=== PATIENT | male | born 1950 | race Caucasian/White ===

== ENCOUNTER 2019-12-07 00:18 | Outpatient (CLI) | payer MEDICARE, SELFPAY ==
[2019-12-07 18:54] LABS: SARS-CoV-2 RNA PCR Negative
== END 2019-12-07 00:19 | disposition home or self-care (01) ==
LOC: ANHCOVIDDT 00:18
PROVIDERS: PCP Internal Medicine; Visit Provider Orthopaedic Surgery
DX: Z01.818 Encounter for other preprocedural examination (principal); Z11.59 Encounter for screening for other viral diseases
CPT/HCPCS: 87635; C9803; U0003

== ENCOUNTER 2019-12-09 01:55 | Day surgery (SDC) | payer MEDICARE, SELFPAY ==
[2019-12-03 09:58] VITALS: BMI 25.7
--- NOTE | 2019-12-08 14:13 | WPDANESEPPF ---
Anes - Initial Pre Proc Eval Procedure: Operation Date: 12/09/19 07:30 Proposed Procedures p Left Knee Arthroscopy - Triston Mireles MD Date/Time: 12/08/19 14:13 Surgeon: Triston Mireles MD Pre Op Diagnosis: left medial meniscus tear Patient Data Age: 69 Gender: M Height: 1.88 m Weight: 90.75 kg Allergies Allergy/AdvReac Type Severity Reaction Status Date / Time No Known Allergies Allergy Unknown Verified 12/03/19 09:38 Home Medications Medication Instructions Recorded Confirmed Type amlodipine 5 mg tablet 5 mg PO QNOON 11/26/19 12/03/19 History cholecalciferol (vitamin D3) 50 mcg PO DAILY 12/03/19 12/03/19 History multivitamin,[id number] 1 tablet PO DAILY 12/03/19 12/03/19 History [Complete Multivitamin] Patient hx anesthesia problems: none Family hx anesthesia problems: none PMFSH Past Medical History Medical History (Updated 11/26/19 @ 15:57 by JOEL Shetty) HTN (hypertension) Medial meniscus tear Right knee pain Vision abnormalities Social History Social History (Updated 11/26/19 @ 14:04 by Alyssia Rendon) Smoking status: Never smoker Alcohol intake: current Substance use: unknown Anes - Eval Final PreProcedure Day of Procedure 12/08/19 14:13 Patient weight: normal Heart: regular rate and rhythm Lungs: clear to auscultation and normal air movement Airway: Mallampati scale class II Neurological: alert and oriented Last oral intake: >/= 8 hours ASA classification: II Emergent: no Anesthetic plan: proceed Anesthesia type and monitoring: general LMA Informed Consent: The patient's anesthetic plan and its attendant risks and benefits were discussed with the patient/family/POA. Questions were solicited and answers provided to the satisfaction of the patient/family/POA.
[2019-12-09] VITALS (7 sets, daily range): BP systolic 121–150; BP diastolic 85–95; PULSE 60–68; RESP 12–14; TEMP 36.2; O2SAT 98–100
--- NOTE | 2019-12-09 07:36 | WPDHPUPDATE1 ---
History and Physical Update Update Date/Time: 12/09/19 07:36 History and Physical has been reviewed, including an updated exam of the patient. There are NO changes in the patient's condition. Risks, benefits, and alternatives have been discussed and questions answered. Patient agrees to proceed with procedure.
[2019-12-09] MEDS: ceFAZolin 2 GM/D5W 50 ML 2 GM/50 ML BAG IVPB (07:38)
[2019-12-09] MEDS: LACTATED RINGERS 1,000 ML 30 ML IV CONT ×2 (08:45)
--- NOTE | 2019-12-09 08:47 | PM.OP ---
Procedure Note - Brief Procedure Note - Brief Date of procedure: 12/09/19 Pre-op diagnosis: left medial meniscus tear Post-op diagnosis: same Procedure performed: LEFT KNEE SCOPE Anesthesia: GLMA Surgeon: Triston Mireles MD Estimated blood loss (mL): 10 Complications: No immediate complications Condition: stable Disposition: PACU
--- NOTE | 2019-12-09 09:18 | OP_ITS ---
DATE OF PROCEDURE: 12/09/2019 PREOPERATIVE DIAGNOSIS: Left medial meniscus tear. 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 PROCEDURE: Left knee arthroscopy with partial medial meniscectomy, partial lateral meniscectomy, and major synovectomy. ANESTHESIA: General. COMPLICATIONS: None. INDICATIONS: This is a 69-year-old male with a history of left knee pain and effusion due to complex medial meniscus tear. He was indicated for left knee arthroscopy. DESCRIPTION OF PROCEDURE: The patient was taken to the operative room in stable condition, was placed in supine position. General anesthesia was induced and then, the left lower extremity was prepped and draped sterilely from the toes to the thigh. Superomedial portal was used for an outflow cannula. Inferolateral portal was used for the camera. The camera was introduced. 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 There was significant amount of synovitis in the superomedial compartment and in Hoffa synovium. The medial compartment was entered. There was a complex tear of the medial meniscus. A medial portal was established and the meniscus tear was resected down to a smooth base and smoothed out with a shaver. Limited chondroplasty was performed on the medial femoral condyle. The ACL was identified. It was intact. The lateral compartment was entered. There was a small complex tear of the lateral meniscus that was resected with a shaver and limited chondroplasty was performed. Next, patellofemoral joint underwent chondroplasty. Thus, synovectomy was performed in the medial compartment and in Hoffa synovium. The knee joint was irrigated thoroughly. The wounds were approximated with 4-0 nylon suture. Sterile dressing was applied. The patient was extubated. Anna I MT: Cydney
--- NOTE | 2019-12-09 09:32 | SUR.PHASEI ---
DOCUMENTATION @ 0714 IN WORKLIST SHOULD BE DOCUMENTED 0930 12/09/19.
== END 2019-12-09 10:34 | disposition home or self-care (01) ==
PROVIDERS: PCP Internal Medicine; Visit Provider Orthopaedic Surgery
PROC: (CPT 29870; principal; 2019-12-09 07:30)
DX: M23.332 Other meniscus derangements, other medial meniscus, left knee (principal); M23.362 Other meniscus derangements, other lateral meniscus, left knee; M94.262 Chondromalacia, left knee; M65.862 Other synovitis and tenosynovitis, left lower leg; I10 Essential (primary) hypertension
CPT/HCPCS: 29880; 87635; A9270; C9803; J0690; J2250; J2405; J2704; J3010; J7120; U0003

== ENCOUNTER 2021-03-31 18:07 | Inpatient (IN) | payer MEDICARE, SELFPAY ==
--- NOTE | ~2021-03-31 | XR_ITS ---
EXAMINATION: XR abdomen/kub 1V INDICATION: Assess stent position TECHNIQUE: Supine views of the abdomen were obtained on 2 radiographs. COMPARISON: None FINDINGS: There are bilateral internal ureteral stents in expected position. Stones are present in th e lower poles of the kidneys. Epigastric calcifications may be within the pancreas. The bowel gas pat tern is normal. A moderate volume of colonic stool is present. 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 IMPRESSION: 1. Bilateral internal ureteral stents in expected position. Reviewed, dictated and finalized at location A.
--- NOTE | ~2021-03-31 | XR_ITS ---
XR retrograde pyelo w/stent BI DATE: 04/01/2021 12:24 INDICATION: Bilateral stent placement TECHNIQUE: 48.4 seconds fluoroscopy time 806.85 radcm2 Multiple bilateral spot C-arm images during bilateral retrograde pyelography and stent placement COMPARISON: None FINDINGS: There is evidence of bilateral ureteropelvic disproportion with bilateral pelviectasis. Final images revealed bilateral internal urinary stent placements with the stents in expected positio n. IMPRESSION: Bilateral ureteropelvic disproportion and pelviectasis Bilateral internal urinary stent placement Reviewed, dictated and finalized at Location [facility]. Reviewed, dictated and finalized at location A.
[2021-03-31 18:11] VITALS: BP 138/94; PULSE 88; RESP 16; TEMP 36.3; O2SAT 97
[2021-03-31 18:47] LABS: Basophils Percent Auto 0.2 % (0.2-1.2); Eosinophils Percent Auto 0.3 % (0-4.4); Hematocrit 40.2 % (42.0-52.0); Hemoglobin 13.6 g/dL (14.0-18.0); Immature Granulocyte Absolute 0.02 K/mm3 (0.00-0.031); Immature Granulocyte Percent A 0.2 % (0-0.5); Lymphocytes Absolute Auto 0.85 K/mm3 (0.9-3.2); Lymphocytes Percent Auto 7.8 % (18.3-44.2); Mean Corpuscular HGB Conc 33.8 g/dl (32-36); Mean Corpuscular Volume 88.7 fl (80-100); Mean Platelet Volume 8.4 fl (7.4-10.4); Monocytes Percent Auto 9.3 % (2.6-8.5); Neutrophils Percent Auto 82.2 % (45.5-73.1); Platelet Count Result 210 k/mm3 (150-375); Red Blood Count 4.53 M/mm3 (4.6-6.20); Red Cell Distribution Width 12.4 % (11.5-14.5); White Blood Count 10.9 K/mm3 (4.5-10.0)
[2021-03-31 18:54] LABS: Anion Gap 11 mmol/L (8-16); Blood Urea Nitrogen 21 mg/dL (9-20); Calcium 9.7 mg/dL (8.4-10.2); Carbon Dioxide 27 mmol/L (22-30); Chloride 102 mmol/L (98-107); Estimated CRCL calculation 59 ml/min; Estimated Glomerular Filt Rate 60; Glucose 127 mg/dL (65-110); Sodium 140 mmol/L (137-145)
[2021-03-31 18:59] LABS: Add Urine Microscopic? YES; Appearance Urine Cloudy (Clear); Bilirubin Urine Negative (Negative); Blood Urine 3+ (Negative); Color Urine Yellow (Yellow); Glucose Urine UA Negative (Negative); Ketones Urine Trace mg/dL (Negative); Leukocyte Esterase Ur Negative LEU/UL (Negative); Nitrate Urine Negative (Negative); Protein Urine 1+ mg/dL (Negative); RBC Urine >75 /hpf (0-2); Urobilinogen Urine Negative mg/dL (<2.0); WBC Urine 51-75 /hpf
[2021-03-31 19:23] LABS: Specific Grav Ur 1.035 (1.001-1.035)
--- NOTE | 2021-03-31 21:04 | ED.GENADULT ---
HPI - General Adult General Chief complaint: Abdominal Pain Stated complaint: flank pain Time Seen by Provider: 03/31/21 20:29 History of Present Illness HPI narrative: Patient 70-year-old gentleman who presents the emergency department with chief complaint of kidney stones. Patient reports that he had a prior history of kidney stones and started having severe flank pain patient was seen at [place] and had an outpatient CT scan done by urology. The patient was found to have bilateral obstructing stones patient was also found to have a UTI and was started on Bactrim the patient is taken 1 dose of the Bactrim and this evening started having severe pain worse in the left side. The patient states that he talk to urology and they recommended that if his pain got worse he should go to the emergency department at [place] for admission. Patient was planned to have bilateral stents placed on Saturday Related Data Home Medications Medication Instructions Recorded Confirmed amlodipine 5 mg tablet 5 mg PO QNOON 11/26/19 12/09/19 Complete Multivitamin 1 tablet PO DAILY 12/03/19 12/09/19 cholecalciferol (vitamin D3) 50 mcg PO DAILY 12/03/19 12/09/19 Allergies Allergy/AdvReac Type Severity Reaction Status Date / Time No Known Allergies Allergy Unknown Verified 12/18/19 09:42 Review of Systems Review of Systems: A 10 system review of systems was completed on the patient and is negative except for what is stated in the HPI. Nursing and ancillary documentation was reviewed. PENDING SALE TO [facility] Past Medical History Medical History (Updated 03/31/21 @ 21:07 by Maciej Diaz MD) HTN (hypertension) Medial meniscus tear Right knee pain Vision abnormalities Family History Family History Other Cerebrovascular accident Social History Social History Smoking status: Never smoker Alcohol intake: current Substance use: unknown Exam Narrative: GENERAL: Well-appearing, well-nourished, and in no acute distress. HEAD: Normocephalic, atraumatic. EYES: PERRLA and EOMI. ENT: Nares clear, no rhinorrhea or epistaxis. Mucous membranes moist. NECK: Supple. CHEST: Clear to auscultation. No respiratory distress. HEART: Regular rate and rhythm. No murmur heard. Normal peripheral pulses. ABDOMEN: Soft, nontender, nondistended, normal active bowel sounds. EXTREMITIES: Normal range of motion. No edema. SKIN: Warm, dry, no rash. NEURO: No focal deficits. Alert and oriented x3. PSYCH: Normal mood and affect. Course Course Emergency Course: Given the patient's history of the case was discussed with Dr. Ortiz who is on-call for Dr. Reyes. Given his history and findings the patient will be admitted to the hospitalist service with a urology consult and plan will be for bilateral stents to be placed during the day tomorrow Vital Signs Vital signs: Vital Signs Temperature 36.3 C L 03/31/21 18:11 Pulse Rate 88 03/31/21 18:11 Respiratory Rate 16 03/31/21 18:11 Blood Pressure 138/94 H 03/31/21 18:11 Pulse Oximetry 97 03/31/21 18:11 Temperature 36.3 C L 03/31/21 18:11 Pulse Rate 88 03/31/21 18:11 Respiratory Rate 16 03/31/21 18:11 Blood Pressure 138/94 H 03/31/21 18:11 Pulse Oximetry 97 03/31/21 18:11 Medical Decision Making Vital Signs Vital Signs: Vital Signs Temperature 36.3 C L 03/31/21 18:11 Pulse Rate 88 03/31/21 18:11 Respiratory Rate 16 03/31/21 18:11 Blood Pressure 138/94 H 03/31/21 18:11 Pulse Oximetry 97 03/31/21 18:11 Temperature 36.3 C L 03/31/21 18:11 Pulse Rate 88 03/31/21 18:11 Respiratory Rate 16 03/31/21 18:11 Blood Pressure 138/94 H 03/31/21 18:11 Pulse Oximetry 97 03/31/21 18:11 Lab Data Result diagrams: 03/31/21 18:16 03/31/21 18:16 Labs: Lab Results 03/31/21 03/31/21 03/31/21 Rang
[2021-03-31 21:10] VITALS: BP 135/91; PULSE 75; RESP 20; O2SAT 98
[2021-03-31] MEDS: ONDANSETRON INJ 4 MG/2 ML VIAL IV PUSH (21:22)
[2021-03-31] MEDS: HYDROmorphone HCL INJ (*CRX) 1 MG/ML SYR IV PUSH (21:22)
[2021-03-31] MEDS: SODIUM CHLORIDE 0.9% IV 1,000 ML 999 ML IV CONT (21:23)
[2021-03-31 22:27] VITALS: BP 127/88; PULSE 76; RESP 17; O2SAT 97
[2021-03-31 22:51] VITALS: BMI 27.8
--- NOTE | 2021-03-31 22:58 | ADMGEN ---
This patient, Patrick Crowley, was admitted to 3 [facility] Surg Room 302-01. Patient/family oriented to hospital policies and general routines including ID bracelet, bed and alarms, visiting hours, pain management, procedures, bathroom and other care routines, personal items, smoking policy, room service/diet, and visiting hours. Information on how to activate the Rapid Response Team has been discussed. Patient/Family are encouraged to report perceived risks to care and to ask questions if they do not understand what they are told or what they should do.
[2021-04-01] VITALS (14 sets, daily range): BP systolic 112–175; BP diastolic 71–95; PULSE 68–110; RESP 10–20; TEMP 36.1–36.8; O2SAT 93–100
[2021-04-01] MEDS: SODIUM CHLORIDE 0.9% IV 1,000 ML 125 ML IV CONT ×2 (05:55→17:39)
[2021-04-01] MEDS: MORPHINE SULFATE (*CRX) 4 MG/ML INJ IV PUSH ×5 (05:56→21:10)
--- NOTE | 2021-04-01 06:48 | WPDANESEPP ---
Anes - Eval Pre Procedure Procedure: Operation Date: 04/01/21 12:00 Proposed Procedures p Cystoscopy with Bilateral Stent Placecment, Possible Ureteroscopy(Bilateral) - Trudy Ortiz MD Date/Time: 04/01/21 06:48 Pre Op Diagnosis: Bilateral Obstructing Ureterolithiasis Patient Data Age: 70 Gender: M Height: 1.88 m Weight: 98.2 kg Last Vital Signs Temp 36.3 C L 04/01/21 06:00 Pulse 68 04/01/21 06:00 Resp 18 04/01/21 06:00 BP 112/71 04/01/21 06:00 Pulse Ox 98 04/01/21 06:00 Allergies Allergy/AdvReac Type Severity Reaction Status Date / Time No Known Allergies Allergy Unknown Verified 03/31/21 21:11 Home Medications Medication Instructions Recorded Confirmed Type amlodipine 5 mg tablet 5 mg PO QNOON 11/26/19 03/31/21 History Laboratory Tests 03/31/21 03/31/21 03/31/21 18:16 18:16 18:25 WBC 10.9 K/mm3 H K/mm3 (4.5-10.0) RBC 4.53 M/mm3 L M/mm3 (4.6-6.20) Hgb 13.6 g/dL L g/dL (14.0-18.0) Hct 40.2 % L % (42.0-52.0) MCV 88.7 fl fl (80-100) MCH 30.0 pg pg (26-34) MCHC 33.8 g/dl g/dl (32-36) RDW 12.4 % % (11.5-14.5) Plt Count 210 k/mm3 k/mm3 (150-375) MPV 8.4 fl fl (7.4-10.4) Immature Gran % (Auto) 0.2 % % (0-0.5) Neut % (Auto) 82.2 % H % (45.5-73.1) Lymph % (Auto) 7.8 % L % (18.3-44.2) Cotton % (Auto) 9.3 % H % (2.6-8.5) Eos % (Auto) 0.3 % % (0-4.4) Baso % (Auto) 0.2 % % (0.2-1.2) Lymph # (Auto) 0.85 K/mm3 L K/mm3 (0.9-3.2) Cotton # (Auto) 1.0 K/mm3 H K/mm3 (0.1-0.6) Eos # (Auto) 0.0 K/mm3 K/mm3 (0-0.3) Baso # (Auto) 0.0 K/mm3 K/mm3 (0.0-0.1) Abs Immat Gran (auto) 0.02 K/mm3 K/mm3 (0.00-0.031) Absolute Neuts (auto) 9.0 K/mm3 H K/mm3 (1.3-6.7) Absolute Nucleated RBC 0.0 K/mm3 K/mm3 (0.0-0.012) Nucleated RBC % 0.0 % % (0.0-0.2) Sodium 140 mmol/L mmol/L (137-145) Potassium 4.0 mmol/L mmol/L (3.4-5.0) Chloride 102 mmol/L mmol/L (98-107) Carbon Dioxide 27 mmol/L mmol/L (22-30) Anion Gap 11 mmol/L mmol/L (8-16) BUN 21 mg/dL H mg/dL (9-20) Creatinine 1.20 mg/dL mg/dL (0.7-1.3) Estim Creat Clear Calc 59 ml/min ml/min Estimated GFR 60 (59 - ) Glucose 127 mg/dL H mg/dL (65-110) Calcium 9.7 mg/dL mg/dL (8.4-10.2) Urine Color Yellow (Yellow) Urine Appearance Cloudy H (Clear) Urine pH 6.0 (5.0-9.0) Ur Specific [place] 1.035 (1.001-1.035) Urine Protein 1+ mg/dL H mg/dL (Negative) Urine Glucose (UA) Negative mg/dL mg/dL (Negative) Urine Ketones Trace mg/dL mg/dL (Negative) Ur Blood (Man) 3+ H (Negative) Urine Nitrate Negative (Negative) Urine Bilirubin Negative (Negative) Urine Urobilinogen Negative mg/dL mg/dL (<2.0) Leukocyte Esterase Rfl Negative KEITH/UL KEITH/UL (Negative) Urine RBC >75 /hpf H /hpf (0-2) Urine WBC 51-75 /hpf H /hpf Patient hx anesthesia problems: none Family hx anesthesia problems: none Results Review: All pre-operative results and documents have been reviewed as part of the pre-operative evaluation. [facility] Past Medical History Medical History HTN (hypertension) Medial meniscus tear Right knee pain Vision abnormalities Family History Family History Other Cerebrovascular accident Social History Social History Smoking status: Never smoker Alcohol intake: never Substance use: never Spiritual care concerns: No
--- NOTE | 2021-04-01 09:18 | PM.IMHP ---
H&P: HPI History of Present Illness Date/Time: 04/01/21 09:18 Patient is 70-year-old gentleman who presents the emergency department with chief complaint of kidney stones. Patient reports that he had a prior history of kidney stones and started having severe flank pain patient was seen at [place] and had a scheduled outpatient CT scan done by urology on Saturday. The patient was found to have bilateral obstructing stones patient was also found to have a UTI and was started on Bactrim the patient is taken 1 dose of the Bactrim and this evening started having severe pain worse in the left side. The patient spoke to his urologist's and they recommended to go to the emergency department at [place] for admission. He is well-known patient of Dr. Reyes. Emergent CTUrogram at [place] showed bilateral 5 mm UPJ stones with mild right hydro and moderate left hydro. There was decrease in size of the lesion in the left kidney. UA in office was positive and was started on bactrim. Cr was 1.0 and plan was for bilateral ureteral stents on Saturday with DR Combs. He is scheduled for cystoscopy, bilateral stent placement, and possible left ureteroscopy to evaluate the filling defect in the left renal pelvis. Patient has been admitted under observation status. . Chief Complaint: Abdominal pain Review of Systems Constitutional: Constitutional: Reports no additional constitutional complaints Eyes: Eyes: Reports no additional eye complaints ENT: Reports system reviewed and no additional complaints, except as documented Cardiovascular: Cardiovascular: Reports no additional cardiovascular complaints Respiratory: Respiratory: Reports no additional respiratory complaints Gastrointestinal: Gastrointestinal: Reports no additional gastrointestinal complaints Genitourinary: Genitourinary: Reports flank pain Comments: Flank pain Musculoskeletal: Musculoskeletal: Reports no additional musculoskeletal complaints Integumentary/Breasts: Skin/Breast: Reports system reviewed and no additional complaints, except as docu Neurologic: Reports system reviewed and no additional complaints, except as documented Psychiatric: Psychiatric: Reports no additional psychiatric complaints [facility] Past Medical History Medical History (Updated 04/01/21 @ 11:39 by Trudy Ortiz MD) HTN (hypertension) Medial meniscus tear Right knee pain Vision abnormalities Family History Family History Other Cerebrovascular accident Social History Social History Smoking status: Never smoker Alcohol intake: never Substance use: never Spiritual care concerns: No Meds Home Medications and Allergies Home Medications Medication Instructions Recorded Confirmed Type amlodipine 5 mg tablet 5 mg PO QNOON 11/26/19 03/31/21 History Allergies Allergy/AdvReac Type Severity Reaction Status Date / Time No Known Allergies Allergy Unknown Verified 03/31/21 21:11 Vital Signs Vital Signs - 24 hr 03/31/21 18:11 03/31/21 21:10 03/31/21 22:27 Temperature 97.3 F L Pulse Rate 88 75 76 Respiratory Rate 16 20 17 Blood Pressure 138/94 H 135/91 H 127/88 Pulse Oximetry 97 98 97 04/01/21 06:00 Temperature 97.3 F L Pulse Rate 68 Respiratory Rate 18 Blood Pressure 112/71 Pulse Oximetry 98 Exam Const: General: no acute distress HENMT: Mouth: Yes moist mucous membranes Eyes: General: appearance normal, both eyes and all related structures Sclera: sclerae normal Pupils: Equal, round and reactive pupils present EOM: EOMs intact bilaterally Neck: Neck: supple and no JVD Resp: Effort & Inspection: normal respiratory effort Auscultation: clear to auscultation bilaterally Cardio: Rate: regular rate Rhythm: regular rhythm GI: Inspection: non-distended GI Palp: No Tenderness to palpation present (GI) : Other: De
[2021-04-01] MEDS: ONDANSETRON INJ 4 MG/2 ML VIAL IV PUSH ×3 (09:52→21:21)
--- NOTE | 2021-04-01 10:26 | WPDANESEFPP ---
Anes - Eval Final PreProcedure Day of Procedure 04/01/21 10:26 Patient weight: overweight Heart: regular rate and rhythm Lungs: clear to auscultation Airway: Mallampati scale class II Neurological: alert and oriented Last oral intake: >/= 8 hours ASA classification: II Emergent: no Anesthetic plan: proceed Anesthesia type and monitoring: general LMA and standard monitoring Results Review: All pre-operative results and documents have been reviewed as part of the pre-operative evaluation. Informed Consent: The patient's anesthetic plan and its attendant risks and benefits were discussed with the patient/family/POA. Questions were solicited and answers provided to the satisfaction of the patient/family/POA.
[2021-04-01] MEDS: FAMOTIDINE 20 MG/2 ML VIAL IV PUSH (10:37)
--- NOTE | 2021-04-01 11:33 | WPDURCON ---
Assessment and Plan Assessment and plan (1) Ureterolithiasis: Code(s): N20.1 - Calculus of ureter Status: Acute (2) Gross hematuria: Code(s): R31.0 - Gross hematuria Status: Acute (3) Hydronephrosis concurrent with and due to calculi of kidney and ureter: Code(s): N13.2 - Hydronephrosis with renal and ureteral calculous obstruction Status: Acute Assessment and Plan: 70 yo WM presenting with bilateral 5 mm UPJ stones with hydronephrosis. He had +UA in office started on bactrim and now on rocephin. He elects to proceed to the OR for cystoscopy, bilateral stent placement, and possible left ureteroscopy to evaluate the filling defect in the left renal pelvis. He understands that if the urine looks infected or if I am unable to advance the ureteroscope, he will need a delayed definitive ureteroscopy with Dr. Reyes at the time of treatment for his right UPJ stone. He understands the risks of the procedure today including but not limited to bleeding, infection, damage to the urinary tract, stent irritation, and risks of anesthesia. He elects to proceed. Continue IV abx while awaiting culture results. Recommend rechecking Cr and wbc ct in AM. Urology Consult Note HPI Date Seen: 04/01/21 Requesting Physician: Roseline Phillips DO Primary Care Provider: Jacques Soni, Consult Narrative Narrative: Patrick Crowley is a 70 year old male presenting with hematuria and left flank pain. Is known patient of Dr. Reyes. Had CT a month ago showing blood clot vs mass in left kidney. He was scheduled for outpatient CTUrogram but had sudden onset of recurrent hematuria and flank pain yesterday. He saw our COMMUNICATIONS CONSULTANT in the office. Emergent CTUrogram at [place] showed bilateral 5 mm UPJ stones with mild right hydro and moderate left hydro. There was decrease in size of the lesion in the left kidney. UA in office was positive and was started on bactrim. Cr was 1.0 and plan was for bilateral ureteral stents on Saturday with DR Combs. However, patient presented to ER last night with worsening left flank pain and has had some nausea and emesis today. No fevers, chills. Review of Systems Review of Systems: All systems reviewed & are unremarkable except as noted in HPI and below (all systems are negative other than as per HPI) Constitutional: Constitutional: Reports as per HPI, Denies chills and Denies fever(s) [facility] Past Medical History Medical History (Updated 04/01/21 @ 11:39 by Trudy Ortiz MD) HTN (hypertension) Medial meniscus tear Right knee pain Vision abnormalities Family History Family History Other Cerebrovascular accident Social History Social History Smoking status: Never smoker Alcohol intake: never Substance use: never Spiritual care concerns: No Meds Home Medications and Allergies Home Medications Medication Instructions Recorded Confirmed Type amlodipine 5 mg tablet 5 mg PO QNOON 11/26/19 03/31/21 History Allergies Allergy/AdvReac Type Severity Reaction Status Date / Time No Known Allergies Allergy Unknown Verified 03/31/21 21:11 Vital Signs Vital Signs - 24 hr 03/31/21 18:11 03/31/21 21:10 03/31/21 22:27 Temperature 36.3 C L Pulse Rate 88 75 76 Respiratory Rate 16 20 17 Blood Pressure 138/94 H 135/91 H 127/88 Pulse Oximetry 97 98 97 04/01/21 06:00 04/01/21 08:00 Temperature 36.3 C L Pulse Rate 68 68 Respiratory Rate 18 18 Blood Pressure 112/71 Pulse Oximetry 98 98 Exam Narrative: 70 yo WM in minimal distress due to nausea Const: General: cooperative, healthy appearing and well developed HENMT: Head: normal to inspection Ears: hearing grossly normal bilaterally General nose exam: Normal external nose present Eyes: General: appearance normal, both eyes and all related str
--- NOTE | 2021-04-01 11:44 | WPDHPUPDATE1 ---
History and Physical Update Update Date/Time: 04/01/21 11:44 History and Physical has been reviewed, including an updated exam of the patient. There are NO changes in the patient's condition. Risks, benefits, and alternatives have been discussed and questions answered. Patient agrees to proceed with procedure.
[2021-04-01] MEDS: LIDOCAINE HCL 2% GEL UROJET 10 ML PKG MUCOUS MEM (11:59)
--- NOTE | 2021-04-01 12:20 | P.OP_ITS ---
Procedure Note - Detailed Date of Procedure 04/01/21 Pre-op Diagnosis Bilateral Obstructing Ureterolithiasis Post-op Diagnosis same Procedure Performed cystoscopy, bilateral retrograde pyelogram and bilateral stent placement Surgeon Trudy Ortiz MD [employer] none Anesthesia general and local Indications 70 yo WM with bilateral 5 mm UPJ stones with hydronephrosis and +UA. After discussion regarding treatment options, he elects for cystoscopy and bilateral stent placement with possible ureteroscopy. He understood the risks including but not limited to bleeding, infection, damage to urinary tract, stent irritation, and risks of anesthesia. He elects to proceed. Findings bilateal moderate hydro. Purulent bloody urine in left collecting system. Small 3-4 mm bladder stone Description of Procedure Patient was correctly identified and informed consent was obtained. He was brought to the OR and formal timeout was performed. General anesthesia was induced. He already received IV rocephin and was not due for redosing. He was placed in dorsal lithotomy position, prepped and draped in sterile fashion. Rigid cystoscope was inserted throught the urethra into the bladder. He was noted to have trilobar hypertrophy of the prostate. He had several clots in the bladder and moderate trabeculations. I noted a 3-4 mm bladder stone which I removed and sent for pathology. The right UO was intubated with a bentson wire and advanced under fluoroscopy into the right kidney. Using an 8fr coaxial dilator, a gentle retrograde pyelogram was performed. He was noted to have moderate right hydronephrosis. A 6fr variable length stent was placed under a combination of fluoroscopic guidance and direct vision with a curl in the renal pelvis and another curl in the bladder. I then intubated the left UO with the bentson wire and advanced it under fluoroscopy into the left kidney. I advanced the 8fr coaxial dilator into the left renal pelvis. There was return of bloody purulent urine. I took a urine specimen for culture. A gentle retrograde pyelogram was performed and he was noted to have moderate left hydonephrosis. Due to the purulent urine, I elected not to proceed with ureteroscopy. A A 6fr variable length stent was placed under a combination of fluoroscopic guidance and direct vision with a curl in the renal pelvis and another curl in the bladder. The bladder was drained of its contents and 2% lidocaine jelly was inserted. He was awaken and taken to the recovery room in a stable condition. Implants bilateral 6 fr variable length stents Estimated Blood Loss 5 Drains No Packing No Pathology yes (bladder stone and left renal pelvis urine for culture) Complications No immediate complications Condition stable Disposition PACU
--- NOTE | 2021-04-01 13:20 | PC.NURSE ---
Patient back from PACU via stretcher at 1305.
[2021-04-01] MEDS: amLODIPine BESYLATE 5 MG TABLET PO (17:37)
[2021-04-01] MEDS: oxyCODONE/ACETAMINOPHEN (*CRX) 5-325 MG TABLET 1 TABLET PO ×2 (17:37→23:56)
[2021-04-02] MEDS: MORPHINE SULFATE (*CRX) 4 MG/ML INJ IV PUSH (03:20)
[2021-04-02] MEDS: SODIUM CHLORIDE 0.9% IV 1,000 ML 125 ML IV CONT ×4 (03:26→22:27)
[2021-04-02 05:57] VITALS: BP 146/91; PULSE 95; RESP 20; TEMP 36.4; O2SAT 98
[2021-04-02 06:32] LABS: Basophils Percent Auto 0.1 % (0.2-1.2); Hemoglobin 12.3 g/dL (14.0-18.0); Immature Granulocyte Absolute 0.04 K/mm3 (0.00-0.031); Immature Granulocyte Percent A 0.3 % (0-0.5); Lymphocytes Absolute Auto 0.83 K/mm3 (0.9-3.2); Mean Corpuscular HGB Conc 33.2 g/dl (32-36); Mean Corpuscular Hemoglobin 30.3 pg (26-34); Mean Corpuscular Volume 91.1 fl (80-100); Mean Platelet Volume 8.1 fl (7.4-10.4); Monocytes Absolute Auto 1.2 K/mm3 (0.1-0.6); Monocytes Percent Auto 10.4 % (2.6-8.5); Neutrophils Absolute Auto 9.7 K/mm3 (1.3-6.7); Neutrophils Percent Auto 82.2 % (45.5-73.1); Platelet Count Result 181 k/mm3 (150-375); Red Blood Count 4.06 M/mm3 (4.6-6.20); Red Cell Distribution Width 12.6 % (11.5-14.5); White Blood Count 11.8 K/mm3 (4.5-10.0)
[2021-04-02 06:42] LABS: Anion Gap 8 mmol/L (8-16); Blood Urea Nitrogen 25 mg/dL (9-20); Calcium 9.6 mg/dL (8.4-10.2); Carbon Dioxide 28 mmol/L (22-30); Chloride 105 mmol/L (98-107); Estimated CRCL calculation 45 ml/min; Estimated Glomerular Filt Rate 43; Glucose 123 mg/dL (65-110); Potassium 4.2 mmol/L (3.4-5.0); Sodium 141 mmol/L (137-145)
--- NOTE | 2021-04-02 07:47 | PM.IMPN ---
Progress Note: A&P Assessment and Plan (1) Ureterolithiasis: Code(s): N20.1 - Calculus of ureter Status: Acute Assessment and Plan: Urology performed cystoscopy and bilateral stent placement with possible ureteroscopy. Findings were bilateral moderate hydro. Purulent bloody urine in left collecting system. Small 3-4 mm bladder stone sent for pathology. Purulent urine sent for culture. (2) HTN (hypertension): Code(s): I10 - Essential (primary) hypertension Status: Acute Assessment and Plan: Uncontrolled hypertension overnight likely related to pain. Improvement of blood pressure control today. Current blood pressure 133/71. Continue amlodipine 5 mg p.o. daily. (3) Right knee pain: Code(s): M25.561 - Pain in right knee Status: Acute Assessment and Plan: Tylenol PRN (4) Gross hematuria: Code(s): R31.0 - Gross hematuria Status: Acute Assessment and Plan: likely secondary to calculi of kidney and ureter. (5) Hydronephrosis concurrent with and due to calculi of kidney and ureter: Code(s): N13.2 - Hydronephrosis with renal and ureteral calculous obstruction Status: Acute Assessment and Plan: Patient is postop day 1 Stent placement. Pain which is resolved. Pain as improved this morning. He had an episode of incontinence. Urine cultures are negative, but patient was already on Bactrim. Currently he is afebrile with normal WBC. Continue Rocephin and monitor daily WBC. (6) Acute kidney injury: Code(s): N17.9 - Acute kidney failure, unspecified Status: Acute Assessment and Plan: mild acute nonoliguric kidney injury, likely secondary to contrast exposure. There may be an element of obstructive uropathy. Patient full for the catheter was inserted with 1.4 L of urine drained. Monitor repeat creatinine in a.m.. Subjective Date/time seen: 04/02/21 07:47 S: Patient was examined at the bedside. He was in pain overnight, but currently on the endorses mild pain. He underwentcystoscopy, bilateral retrograde pyelogram and bilateral stent placement on 04/01. Bladder scan showed Postvoid residual>1 L. Nicolas was placed with 1400 cc blood-tinged urine. Patient states he immediately started to feel better. Review of Systems Review of Systems: All systems reviewed & are unremarkable except as noted in HPI and below Constitutional: Constitutional: Reports no additional constitutional complaints Eyes: Eyes: Reports no additional eye complaints ENT: Reports system reviewed and no additional complaints, except as documented Cardiovascular: Cardiovascular: Reports no additional cardiovascular complaints Respiratory: Respiratory: Reports no additional respiratory complaints Gastrointestinal: Gastrointestinal: Reports no additional gastrointestinal complaints Genitourinary: Genitourinary: Reports flank pain Musculoskeletal: Musculoskeletal: Reports no additional musculoskeletal complaints Integumentary/Breasts: Skin/Breast: Reports system reviewed and no additional complaints, except as docu Neurologic: Reports system reviewed and no additional complaints, except as documented Psychiatric: Psychiatric: Reports no additional psychiatric complaints Exam Const: General: no acute distress HENMT: Mouth: Yes moist mucous membranes Eyes: General: appearance normal, both eyes and all related structures Sclera: sclerae normal Pupils: Equal, round and reactive pupils present EOM: EOMs intact bilaterally Neck: Neck: supple and no JVD Resp: Effort & Inspection: normal respiratory effort Auscultation: clear to auscultation bilaterally Cardio: Rate: regular rate Rhythm: regular rhythm GI: Inspection: non-distended : Other: Deferred. Skin: General skin exam: normal color and no rashes or lesions noted Neuro: Cranial nerves: Yes Equal, round and reactive pupils present Cognition (Neuro): elizabeth
--- NOTE | 2021-04-02 07:53 | WPDANESPN ---
Anes - Prog Note Post-Op Date/Time: 04/02/21 07:53 Cardiovascular status: normal Respiratory status: normal Airway patency: baseline Mental status: baseline Post-Op hydration status: normal Vital Signs: Last Vital Signs Temp 36.4 C 04/02/21 05:57 Pulse 95 04/02/21 05:57 Resp 20 04/02/21 05:57 BP 146/91 H 04/02/21 05:57 Pulse Ox 98 04/02/21 05:57 Pain Score (VAS): 0 I/O: Intake & Output 04/01/21 04/01/21 04/02/21 15:59 23:59 07:59 Intake Total 1536 026 1376 Balance 1041 884 2402 Laboratory Tests 04/02/21 06:20 04/02/21 06:20 04/02/21 04/02/21 06:20 06:20 WBC 11.8 H RBC 4.06 L Hgb 12.3 L Hct 37.0 L MCV 91.1 MCH 30.3 MCHC 33.2 RDW 12.6 Plt Count 181 MPV 8.1 Immature Gran % (Auto) 0.3 Neut % (Auto) 82.2 H Lymph % (Auto) 7.0 L [place] % (Auto) 10.4 H Eos % (Auto) 0.0 Baso % (Auto) 0.1 L Lymph # (Auto) 0.83 L [place] # (Auto) 1.2 H Eos # (Auto) 0.0 Baso # (Auto) 0.0 Abs Immat Gran (auto) 0.04 H Absolute Neuts (auto) 9.7 H Absolute Nucleated RBC 0.0 Nucleated RBC % 0.0 Sodium 141 Potassium 4.2 Chloride 105 Carbon Dioxide 28 Anion Gap 8 BUN 25 H Creatinine 1.60 H Estim Creat Clear Calc 45 Estimated GFR 43 L Glucose 123 H Calcium 9.6 Microbiology 03/31/21 18:25 Urine Clean Catch Urine Culture - Final Post-procedural complaints: none Patient Feedback: Patient satisfied with anesthetic care.
[2021-04-02 08:00] VITALS: BP 133/71; PULSE 88; RESP 16; TEMP 36.4; O2SAT 98
--- NOTE | 2021-04-02 09:12 | WPDUROPN2 ---
Progress Note: A&P Assessment and Plan (1) Gross hematuria: Code(s): R31.0 - Gross hematuria Status: Acute (2) Hydronephrosis concurrent with and due to calculi of kidney and ureter: Code(s): N13.2 - Hydronephrosis with renal and ureteral calculous obstruction Status: Acute (3) Ureterolithiasis: Code(s): N20.1 - Calculus of ureter Status: Acute Assessment and Plan: Is POD#1 s/p B stent placement - pain resolved - feels weak this AM. Urine cx from ER negative but was already on bactrim. Urine cx from L renal pelvis pending. Is on rocephin. Mild inc in wbc ct but no fever. Continue abx and follow daily wbc ct - Cr increased to 1.6. His Cr was 1.0 on Saturday but he received IV dye for CTUrogram at [facility]. Cr 1.2 on admission. Cr up to 1.6 today; likely related to contrast nephropathy. Continue to hydrate and monitor Cr closely. Checking bladder scan to ensure no retention and getting KUB to ensure no stent migration. Will need to stay until tomorrow and repeat Cr in AM. Subjective Subjective Date/Time Seen: 04/02/21 09:12 s/p B stent placement yesterday. States pain has resolved. Hematuria has improved. Feels tired and weak Review of Systems Review of Systems: All systems reviewed & are unremarkable except as noted in HPI and below Exam Const: General: cooperative and no acute distress Resp: Effort & Inspection: normal respiratory effort GI: Inspection: normal to inspection GI Palp: No abdominal tenderness : General: Yes no CVA tenderness Objective Data Vital Signs Vital Signs: Vital Signs - 24 hr 04/01/21 12:23 04/01/21 12:35 04/01/21 12:50 Temperature 36.4 C L Pulse Rate 97 96 89 Respiratory Rate 10 L 14 14 Blood Pressure 130/80 140/91 H 140/91 H Pulse Oximetry 100 97 95 04/01/21 12:58 04/01/21 13:05 04/01/21 13:20 Temperature 36.1 C L 36.1 C L Pulse Rate 87 84 86 Respiratory Rate 12 14 16 Blood Pressure 143/85 H 143/79 H 147/78 H Pulse Oximetry 96 97 96 04/01/21 13:50 04/01/21 14:50 04/01/21 18:28 Temperature 36.1 C L 36.2 C L Pulse Rate 84 92 Respiratory Rate 16 16 Blood Pressure 155/82 H 148/87 H 173/95 H Pulse Oximetry 95 98 04/01/21 18:30 04/01/21 20:27 04/01/21 21:44 Temperature 36.3 C L 36.8 C Pulse Rate 110 H 100 Respiratory Rate 18 20 Blood Pressure 175/93 H 145/89 H Pulse Oximetry 98 96 93 04/02/21 05:57 04/02/21 08:00 Temperature 36.4 C 36.4 C Pulse Rate 95 88 Respiratory Rate 20 16 Blood Pressure 146/91 H 133/71 Pulse Oximetry 98 98 Intake/Output Intake/Output: Intake & Output 03/30/21 03/31/21 04/01/21 04/02/21 23:59 23:59 23:59 23:59 Intake Total 1050 1740 1300 Balance 1050 1740 1300 Meds/Results Medications: Active Medications Generic Name Dose Route Start Last Admin Trade Name Freq PRN Reason Stop Dose Admin Acetaminophen 650 mg 04/02/21 09:03 Acetaminophen 325 Mg Tablet PO Q6H PRN Mild Pain (1-3) or Fever Amlodipine Besylate 5 mg 04/01/21 17:00 04/01/21 17:37 Amlodipine Besylate 5 Mg Tablet PO 5 mg NOON TOI Administration Sodium Chloride 1,000 mls @ 125 mls/hr 03/31/21 21:05 04/02/21 03:26 Normal Saline Iv IV CONT 125 mls/hr .Q8H TOI Administration Ceftriaxone Sodium/Dextrose 1 gm in 50 mls @ 100 mls/hr 04/01/21 22:00 04/01/21 21:21 Rocephin 1 Gm/D5w 50 Ml IVPB 100 mls/hr Q24H TOI Administration Morphine Sulfate 4 mg 03/31/21 21:02 04/02/21 03:20 Morphine Sulfate (*Crx) 4 Mg/Ml Inj IV PUSH 4 mg Q2H PRN Administration Pain Rated 7-10 Ondansetron HCl 4 mg 03/31/21 21:02 04/01/21 21:21 Ondansetron Inj 4 Mg/2 Ml Vial IV PUSH 4 mg Q4H PRN Administration Nausea Oxycodone/Acetaminophen 1 tablet 04/01/21 11:43 04/01/21 23:56 Oxycodone/Acetaminophen (*Crx) 5-325 Mg Tablet PO 1 tablet Q4H PRN Administration Pain Rated 4-6 Radiology Results: ITS Impressions Retrograde Brennon
[2021-04-02 14:00] VITALS: BP 133/79; PULSE 93; RESP 18; TEMP 37.1; O2SAT 97
[2021-04-02] MEDS: amLODIPine BESYLATE 5 MG TABLET PO (15:41)
[2021-04-02 20:10] VITALS: O2SAT 95
[2021-04-02 21:49] VITALS: BP 129/79; PULSE 95; RESP 18; TEMP 36.8; O2SAT 96
[2021-04-03 05:46] LABS: Basophils Percent Auto 0.4 % (0.2-1.2); Eosinophils Absolute Auto 0.2 K/mm3 (0-0.3); Eosinophils Percent Auto 1.9 % (0-4.4); Hematocrit 34.2 % (42.0-52.0); Hemoglobin 11.4 g/dL (14.0-18.0); Immature Granulocyte Absolute 0.04 K/mm3 (0.00-0.031); Immature Granulocyte Percent A 0.5 % (0-0.5); Lymphocytes Absolute Auto 1.75 K/mm3 (0.9-3.2); Lymphocytes Percent Auto 21.7 % (18.3-44.2); Mean Corpuscular HGB Conc 33.3 g/dl (32-36); Mean Platelet Volume 8.9 fl (7.4-10.4); Monocytes Percent Auto 12.3 % (2.6-8.5); Neutrophils Absolute Auto 5.1 K/mm3 (1.3-6.7); Neutrophils Percent Auto 63.2 % (45.5-73.1); Platelet Count Result 187 k/mm3 (150-375); Red Cell Distribution Width 12.6 % (11.5-14.5); White Blood Count 8.1 K/mm3 (4.5-10.0)
[2021-04-03 05:52] VITALS: BP 133/84; PULSE 89; RESP 18; TEMP 37.2; O2SAT 96
[2021-04-03 06:03] LABS: Anion Gap 5 mmol/L (8-16); Blood Urea Nitrogen 17 mg/dL (9-20); Calcium 9.1 mg/dL (8.4-10.2); Carbon Dioxide 29 mmol/L (22-30); Chloride 107 mmol/L (98-107); Estimated CRCL calculation 87 ml/min; Estimated Glomerular Filt Rate > 60; Glucose 111 mg/dL (65-110); Sodium 141 mmol/L (137-145)
[2021-04-03] MEDS: SODIUM CHLORIDE 0.9% IV 1,000 ML 125 ML IV CONT (06:55)
--- NOTE | 2021-04-03 08:45 | WPDUROPN2 ---
Progress Note: A&P Assessment and Plan (1) Hydronephrosis concurrent with and due to calculi of kidney and ureter: Code(s): N13.2 - Hydronephrosis with renal and ureteral calculous obstruction Status: Acute Assessment and Plan: Due to bilateral stones (2) Acute kidney injury: Code(s): N17.9 - Acute kidney failure, unspecified Status: Acute Assessment and Plan: Creatinine improved with stent placement (3) Ureterolithiasis: Code(s): N20.1 - Calculus of ureter Status: Acute Assessment and Plan: Will schedule outpatient stone procedure. The office will contact (4) Retention of urine, unspecified: Code(s): R33.9 - Retention of urine, unspecified Status: Acute Assessment and Plan: Home with Nicolas catheter. Begin Flomax 0.4 mg daily Subjective Subjective Date/Time Seen: 04/03/21 08:45 Minimal to no discomfort from the stents. Creatinine went up yesterday. Was noted to have urinary retention with over a L in his bladder. Nicolas catheter placed. Creatinine is now normalized. He understands he will go home with the Nicolas catheter. Will attempt a voiding trial in about 1 week. Will also schedule definitive stone procedure as an outpatient. He is stable for discharge home today Exam Const: General: cooperative and healthy appearing; No acute distress or in distress HENMT: Head: normal to inspection Eyes: General: appearance normal, both eyes and all related structures Neck: Neck: normal visual inspection Chest: Chest palpation & inspection: normal inspection of the chest Resp: Effort & Inspection: normal respiratory effort and able to speak in complete sentences Urinary Catheter: Urinary Catheter: patent and draining and urine clear Skin: General skin exam: normal color and no rashes or lesions noted Objective Data Vital Signs Vital Signs: Vital Signs - 24 hr 04/02/21 14:00 04/02/21 20:10 04/02/21 21:49 Temperature 98.8 F 98.2 F Pulse Rate 93 95 Respiratory Rate 18 18 Blood Pressure 133/79 129/79 Pulse Oximetry 97 95 96 04/03/21 05:52 Temperature 99.0 F Pulse Rate 89 Respiratory Rate 18 Blood Pressure 133/84 Pulse Oximetry 96 Intake/Output Intake/Output: Intake & Output 03/31/21 04/01/21 04/02/21 04/03/21 23:59 23:59 23:59 23:59 Intake Total 1050 1790 5820 1360 Output Total 3750 2000 Balance 1050 1790 2070 -640 Meds/Results Medications: Active Medications Generic Name Dose Route Start Last Admin Trade Name Freq PRN Reason Stop Dose Admin Acetaminophen 650 mg 04/02/21 09:03 Acetaminophen 325 Mg Tablet PO Q6H PRN Mild Pain (1-3) or Fever Amlodipine Besylate 5 mg 04/01/21 17:00 04/02/21 15:41 Amlodipine Besylate 5 Mg Tablet PO 5 mg NOON TOI Administration Sodium Chloride 1,000 mls @ 125 mls/hr 03/31/21 21:05 04/03/21 06:55 Normal Saline Iv IV CONT 125 mls/hr .Q8H TOI Administration Ceftriaxone Sodium/Dextrose 1 gm in 50 mls @ 100 mls/hr 04/01/21 22:00 04/02/21 22:27 Rocephin 1 Gm/D5w 50 Ml IVPB 100 mls/hr Q24H TOI Administration Morphine Sulfate 4 mg 03/31/21 21:02 04/02/21 03:20 Morphine Sulfate (*Crx) 4 Mg/Ml Inj IV PUSH 4 mg Q2H PRN Administration Pain Rated 7-10 Ondansetron HCl 4 mg 03/31/21 21:02 04/01/21 21:21 Ondansetron Inj 4 Mg/2 Ml Vial IV PUSH 4 mg Q4H PRN Administration Nausea Oxycodone/Acetaminophen 1 tablet 04/01/21 11:43 04/01/21 23:56 Oxycodone/Acetaminophen (*Crx) 5-325 Mg Tablet PO 1 tablet Q4H PRN Administration Pain Rated 4-6 Radiology Results: ITS Impressions Retrograde Pyelogram 04/01/21 18:11 IMPRESSION: Bilateral ureteropelvic disproportion and pelviectasis Bilateral internal urinary stent placement Abdomen X-Ray 04/03/21 07:18 IMPRESSION: 1. Bilateral internal ureteral stents in expected position. Labs Labs: Laboratory Results - last 2
--- NOTE | 2021-04-03 08:48 | PM.DS ---
DS: Admitting Diagnosis Discharge Date 04/03/21 Admitting Diagnosis Abdominal pain DS: Discharge Diagnosis Discharge Diagnosis (1) Ureterolithiasis: Code(s): N20.1 - Calculus of ureter Status: Acute (2) HTN (hypertension): Code(s): I10 - Essential (primary) hypertension Status: Acute (3) Right knee pain: Code(s): M25.561 - Pain in right knee Status: Acute (4) Gross hematuria: Code(s): R31.0 - Gross hematuria Status: Acute (5) Hydronephrosis concurrent with and due to calculi of kidney and ureter: Code(s): N13.2 - Hydronephrosis with renal and ureteral calculous obstruction Status: Acute (6) Acute kidney injury: Code(s): N17.9 - Acute kidney failure, unspecified Status: Acute (7) Retention of urine, unspecified: Code(s): R33.9 - Retention of urine, unspecified Status: Acute DS: Summary Hospital Course Reason for hospitalization: 70yo male who presents emergency room with abdominal pain to bilateral obstructing kidney stones. Please see H&P for details. Hospital Course: Patient was found to have bilateral obstructing renal stones and UTI as an outpatient and was started on Bactrim. His pain worsened and he presented to the emergency room on 03/31/2021. White count was slightly elevated at 10,900 thousand nine hundred. Creatinine was 1.2. UA showed 3+ blood and greater than 75 red cells but 51-75 white cells. No imaging listed on admission. He was started IV fluids and Rocephin. Urine culture on 03/31 and again on 04/01 both were negative. Patient was seen by Urology and underwent cystoscopy with bilateral retrograde pyelogram and bilateral stent placement on 04/01/2021. The following day patient's creatinine climbed to 1.6 and was found to have urine retention and a Nicolas catheter was placed. All the symptoms have resolved. His white count is now normal. Creatinine is 0.8 today. Discussed with with Urology who felt patient could be discharged home safely with follow-up in the urology clinic. Patient overall did well new discharged home on 04/03/2021 in stable condition. Status at Discharge Cognitive/behavioral status at discharge: Stable Time Spent with Patient Time attestation: Total time spent providing and/or coordinating discharge services: 38 minutes Time spent: Greater than 30 minutes Specific discharge activities: Discussed with Urology and patient Education Exam Narrative: AF 99.0 133/84 891 8 96% ra Gen - NARD Chest - CTA bilaterally, nml RR CV - RRR S1/S2 Abd - Soft, NT/ND, Positive BS -Nicolas secured draining red tinged yellow urine. Ext - No pedal edema Neuro - Alert and oriented. Nonfocal exam. Psych - Nml mood and affect Skin - Warm and dry DS: Data Data Completed and Pending Pending studies at discharge: Pending at discharge 04/01/21 12:04 Surgical [PTH] Routine 04/01/21 12:09 Surgical [PTH] Routine Labs on day of discharge: Labs from last 24 hours 04/03/21 04/03/21 05:04 05:04 WBC 8.1 RBC 3.80 L Hgb 11.4 L Hct 34.2 L MCV 90.0 MCH 30.0 MCHC 33.3 RDW 12.6 Plt Count 187 MPV 8.9 Immature Gran % (Auto) 0.5 Neut % (Auto) 63.2 Lymph % (Auto) 21.7 [place] % (Auto) 12.3 H Eos % (Auto) 1.9 Baso % (Auto) 0.4 Lymph # (Auto) 1.75 [place] # (Auto) 1.0 H Eos # (Auto) 0.2 Baso # (Auto) 0.0 Abs Immat Gran (auto) 0.04 H Absolute Neuts (auto) 5.1 Absolute Nucleated RBC 0.0 Nucleated RBC % 0.0 Sodium 141 Potassium 4.0 Chloride 107 Carbon Dioxide 29 Anion Gap 5 L BUN 17 Creatinine 0.80 Estim Creat Clear Calc 87 Estimated GFR > 60 Glucose 111 H Calcium 9.1 Discharge Plan Discharge Attending physician on discharge: Maciej Penn Consulting providers: Trudy Ortiz Discharging Clinician: Maciej Penn Anticipated Discharge Date/Time: 04/03/21 08:58 Patient
== END 2021-04-03 10:10 | disposition home or self-care (01) | DRG 661 ==
LOC: ANHED 21:21 → ANH3MEDSUR 22:20
PROVIDERS: Emergency Medicine; Internal Medicine; Urology; Admitting Provider Internal Medicine; Emergency Provider Emergency Medicine; PCP Internal Medicine; Visit Provider Internal Medicine
PROC: 0T788DZ Dilation of Bilateral Ureters with Intraluminal Device, Via Natural or Artificial Opening Endoscopic (ICD-10-PCS; CPT 52352; principal; 2021-04-01 12:00)
DX: N13.2 Hydronephrosis with renal and ureteral calculous obstruction (principal); N17.9 Acute kidney failure, unspecified; N21.0 Calculus in bladder; R31.0 Gross hematuria; R33.9 Retention of urine, unspecified; N40.0 Benign prostatic hyperplasia without lower urinary tract symptoms; I10 Essential (primary) hypertension; M25.561 Pain in right knee; Z79.899 Other long term (current) drug therapy
CPT/HCPCS: 36415; 74018; 74420; 80048; 81001; 82365; 85025; 87086; 88300; 96361; 96365; 96375; 96376; 99285; A9270; C1769; C2617; G0378; J0330; J0696; J1170; J2270; J2405; J2704; J7030; Q9966

== ENCOUNTER 2021-04-07 10:50 | Outpatient (CLI) | payer MEDICARE, SELFPAY ==
--- NOTE | 2021-04-07 10:58 | ECG_ITS ---
Measurements Intervals [place] Rate: 92 P: 56 VA: 156 QRS: 58 QRSD: 97 T: 34 QT: 348 QTc: 431 Interpretive Statements SINUS RHYTHM INCOMPLETE RIGHT BUNDLE BRANCH BLOCK BASELINE ARTIFACT- I, III, AVL BORDERLINE ECG Electronically Signed On 04-07-2021 13:06:20 CDT by Brando Bell D.O.
[2021-04-07 12:17] LABS: INR 0.9; Partial Thromboplastin Time 25.8 SECONDS (22.3-36.8); Prothrombin Time 12.2 Seconds (11.1-14.7)
== END 2021-04-07 10:51 | disposition home or self-care (01) ==
LOC: ANHSURGERY 10:55
PROVIDERS: PCP Internal Medicine; Visit Provider Urology
DX: Z01.818 Encounter for other preprocedural examination (principal); N20.0 Calculus of kidney; I10 Essential (primary) hypertension
CPT/HCPCS: 36415; 85610; 85730; 87086; 93005

== ENCOUNTER 2021-04-14 02:06 | Day surgery (SDC) | payer MEDICARE, SELFPAY ==
[2021-04-06 12:52] VITALS: BMI 25.4
[2021-04-14] VITALS (9 sets, daily range): BP systolic 112–138; BP diastolic 76–89; PULSE 72–81; RESP 11–17; TEMP 36.3–36.9; O2SAT 98–100
--- NOTE | ~2021-04-14 | XR_ITS ---
EXAMINATION: XR abdomen/kub 1V DATE: 04/14/2021 06:31 INDICATION: Nephrolithiasis for planned shockwave lithotripsy. TECHNIQUE: A supine view of the abdomen was obtained. COMPARISON: 04/02/2021 FINDINGS: Unchanged bilateral internal ureteral stents which remain in expected position with loops formed over the region of the renal pelvises sees and bladder. Bilateral nephrolithiasis with approximately 11 s tones in the left kidney measuring up to 4 mm the majority clustered in an upper pole calyx. 4 stones project over the lower pole of the right kidney the largest measuring 5 mm. There is a larger 10 mm calcification in the more cephalad right upper quadrant which appears to project beyond the margin of the kidney which could represent a gallstone or more likely hepatic calcified granuloma. Few additio nal likely splenic granulomata at the left upper quadrant also peripheral to the left kidney. A few p hleboliths in the pelvis. Normal bowel gas pattern. IMPRESSION: 1. Bilateral nephrolithiasis and bilateral internal ureteral stents in expected position. Reviewed, dictated and finalized at location A.
--- NOTE | 2021-04-14 06:47 | WPDHPUPDATE1 ---
History and Physical Update Update Date/Time: 04/14/21 06:47 History and Physical has been reviewed, including an updated exam of the patient. There are NO changes in the patient's condition. Risks, benefits, and alternatives have been discussed and questions answered. Patient agrees to proceed with procedure.
[2021-04-14] MEDS: LACTATED RINGERS 1,000 ML 30 ML IV CONT ×2 (07:03→08:52)
--- NOTE | 2021-04-14 07:22 | WPDANESEPPF ---
Anes - Initial Pre Proc Eval Procedure: Operation Date: 04/14/21 07:30 Proposed Procedures p Right Extracorporeal Shock Wave Lithotripsy, - Manjinder Reyes MD s Cystoscopy, Left Ureteroscopy, Left Retrograde Pyelogram, Possible Left Stone Extraction, Possible Left Stent Placement, - Manjinder Reyes MD s Possible Holmium Laser Procedure - Manjinder Reyes MD Date/Time: 04/14/21 07:22 Surgeon: Manjinder Reyes MD Pre Op Diagnosis: bilat kidney stones Patient Data Age: 70 Gender: M Height: 1.88 m Weight: 88.4 kg Last Vital Signs Temp 98.5 F 04/14/21 06:54 Pulse 77 04/14/21 06:54 Resp 16 04/14/21 06:54 BP 127/78 04/14/21 06:54 Pulse Ox 98 04/14/21 06:54 Allergies Allergy/AdvReac Type Severity Reaction Status Date / Time No Known Allergies Allergy Unknown Verified 04/14/21 06:34 Home Medications Medication Instructions Recorded Confirmed Type amlodipine 5 mg tablet 5 mg PO QNOON 11/26/19 04/14/21 History tamsulosin [Flomax] 0.4 mg PO HS #30 cap 04/03/21 04/06/21 Rx multivitamin,ms-nmoe-qeuqelem 1 tablet PO DAILY 04/06/21 04/06/21 History [Complete Multivitamin] sulfamethoxazole-trimethoprim 1 tablet PO BID 04/06/21 04/06/21 History Patient hx anesthesia problems: none Family hx anesthesia problems: none Results Review: All pre-operative results and documents have been reviewed as part of the pre-operative evaluation. REPLACED BY [facility] Past Medical History Medical History (Updated 04/03/21 @ 08:46 by Ty Combs MD) HTN (hypertension) Medial meniscus tear Right knee pain Vision abnormalities Family History Family History Other Cerebrovascular accident Social History Social History Smoking status: Never smoker Alcohol intake: never Substance use: never Living arrangements: with family Spiritual care concerns: No Anes - Eval Final PreProcedure Day of Procedure 04/14/21 07:22 Patient weight: overweight Heart: regular rate and rhythm Lungs: clear to auscultation Airway: Mallampati scale class II Neurological: alert and oriented Last oral intake: >/= 8 hours ASA classification: II Emergent: no Anesthetic plan: proceed Anesthesia type and monitoring: general LMA and standard monitoring Results Review: All pre-operative results and documents have been reviewed as part of the pre-operative evaluation. Informed Consent: The patient's anesthetic plan and its attendant risks and benefits were discussed with the patient/family/POA. Questions were solicited and answers provided to the satisfaction of the patient/family/POA.
[2021-04-14] MEDS: ceFAZolin 2 GM/D5W 50 ML 2 GM/50 ML BAG IVPB (07:33)
[2021-04-14] MEDS: LIDOCAINE HCL 2% GEL UROJET 10 ML PKG MUCOUS MEM (07:33)
--- NOTE | 2021-04-14 08:52 | W.PM.PROC2 ---
Procedure Note - Detailed Date of Procedure 04/14/21 Pre-op Diagnosis Bilat kidney stones, gross hematuria Post-op Diagnosis same Procedure Performed 1. Cystoscopy, left ureteral stent removal, left ureteroscopy with retrograde pyelography, left ureteral stent replacement 2. Right ESWL Surgeon Manjinder Reyes MD Anesthesia general Description of Procedure Patient is brought to the operative suite where he is, first, prepped/draped in his routine sterile fashion while in a dorsal lithotomy position. 16 F flexible cystoscope was placed in the bladder and the left ureteral stent is grasped. A 0.035 in glidewire was advanced in the left renal pelvis an angiographic catheter was used to obtain left retrograde pyelogram. There was no obvious filling defects. Over the wire the placed a 7.5 F flexible ureteral scope. I carefully inspected all the left renal calices, the left renal pelvis and entire left ureter. Urothelial mucosa appears normal without any hyperemia or other signs of neoplasm. I replaced the left ureteral stent ( 4.8 variable length ) with proximal coil in renal pelvis and distal coil in the bladder. Scopes and wires removed. The patient was then repositioned in a supine position and lithotripsy was undertaken to 2 stones in his right kidney. We delivered the 1500 shocks to the larger 5-6 mm stone in the mid pole calyx and a 1000 shocks to a smaller lower pole stone. All shocks were delivered at a maximum power setting of 4. Estimated Blood Loss 0 Drains No Packing No Pathology yes Complications No immediate complications Condition stable Disposition PACU
== END 2021-04-14 10:45 | disposition home or self-care (01) ==
PROVIDERS: PCP Internal Medicine; Visit Provider Urology
PROC: (CPT 50590; principal; 2021-04-14 07:30)
PROC: (CPT 52352; 2021-04-14 07:30)
DX: N13.2 Hydronephrosis with renal and ureteral calculous obstruction (principal); R31.0 Gross hematuria; I10 Essential (primary) hypertension
CPT/HCPCS: 50590; 52351; 52332; 36415; 74018; 85610; 85730; 87086; 93005; A9270; C1758; C1769; C1887; C2617; J0690; J1100; J2250; J2405; J2704; J3010; J7120; Q9966

== ENCOUNTER 2021-04-15 15:12 | Inpatient (IN) | payer MEDICARE, SELFPAY ==
[2021-04-15] VITALS (11 sets, daily range): BP systolic 86–119; BP diastolic 52–80; PULSE 101–136; RESP 15–20; TEMP 37.2–38.2; O2SAT 95–100; BMI 25.3
[2021-04-15] MEDS: SODIUM CHLORIDE 0.9% IV 1,000 ML 999 ML IV CONT ×3 (15:50→20:16)
[2021-04-15] MEDS: LIDOCAINE HCL 2% GEL UROJET 10 ML PKG (15:54)
[2021-04-15 16:05] LABS: Basophils Percent Auto 0.2 % (0.2-1.2); Hematocrit 33.1 % (42.0-52.0); Hemoglobin 11.1 g/dL (14.0-18.0); Immature Granulocyte Absolute 0.08 K/mm3 (0.00-0.031); Immature Granulocyte Percent A 0.4 % (0-0.5); Lymphocytes Absolute Auto 0.28 K/mm3 (0.9-3.2); Lymphocytes Percent Auto 1.5 % (18.3-44.2); Mean Corpuscular HGB Conc 33.5 g/dl (32-36); Mean Corpuscular Volume 89.5 fl (80-100); Mean Platelet Volume 8.3 fl (7.4-10.4); Monocytes Absolute Auto 0.3 K/mm3 (0.1-0.6); Monocytes Percent Auto 1.8 % (2.6-8.5); Neutrophils Absolute Auto 17.7 K/mm3 (1.3-6.7); Neutrophils Percent Auto 96.1 % (45.5-73.1); Platelet Count Result 284 k/mm3 (150-375); Red Cell Distribution Width 12.8 % (11.5-14.5); White Blood Count 18.4 K/mm3 (4.5-10.0)
[2021-04-15 16:18] LABS: Anion Gap 10 mmol/L (8-16); Blood Urea Nitrogen 22 mg/dL (9-20); Calcium 9.3 mg/dL (8.4-10.2); Carbon Dioxide 20 mmol/L (22-30); Chloride 106 mmol/L (98-107); Estimated CRCL calculation 78 ml/min; Estimated Glomerular Filt Rate > 60; Glucose 176 mg/dL (65-110); Potassium 4.2 mmol/L (3.4-5.0); Sodium 136 mmol/L (137-145)
--- NOTE | 2021-04-15 18:01 | ED.GENADULT ---
HPI - General Adult General Chief complaint: Urogenital-Male Stated complaint: DECREASED URINE OUTPUT Time Seen by Provider: 04/15/21 15:29 History of Present Illness HPI narrative: Patient is a 70-year-old male who presents ER with acute urinary retention and fever. Reports at home has been having chills. Has pain in the suprapubic region. No pain in his back or flank. He does endorse some blood in his urine. Yesterday he underwent lithotripsy of 2 stones in the right kidney. He has a stent present his left kidney. He is currently taking Bactrim. Related Data Home Medications Medication Instructions Recorded Confirmed amlodipine 5 mg tablet 5 mg PO QNOON 11/26/19 04/14/21 multivitamin,ex-ecra-xkzomayt 1 tablet PO DAILY 04/06/21 04/06/21 sulfamethoxazole-trimethoprim 1 tablet PO BID 04/06/21 04/06/21 Allergies Allergy/AdvReac Type Severity Reaction Status Date / Time No Known Allergies Allergy Unknown Verified 04/15/21 15:39 Review of Systems Review of Systems: All systems reviewed & are unremarkable except as noted in HPI and below Constitutional: Constitutional: Reports chills, Reports fatigue and Reports fever(s) ENT: Denies nasal congestion and Denies sore throat Cardiovascular: Cardiovascular: Denies chest pain, Denies rapid heart rate and Denies radiating jaw, neck or arm pain Respiratory: Respiratory: Denies cough and Denies dyspnea Gastrointestinal: Gastrointestinal: Reports abdominal pain, Denies diarrhea, Denies nausea and Denies vomiting Genitourinary: Genitourinary: Reports hematuria, Reports oliguria and Denies dysuria Musculoskeletal: Musculoskeletal: Denies back pain and Denies muscle cramps PMFSH Past Medical History Medical History (Updated 04/15/21 @ 18:14 by Shun Goodwin MD) HTN (hypertension) Medial meniscus tear Right knee pain Vision abnormalities Surgical History Surgical History (Updated 04/15/21 @ 18:12 by Shun Goodwin MD) History of lithotripsy Family History Family History Other Cerebrovascular accident Social History Social History Smoking status: Never smoker Alcohol intake: never Substance use: never Spiritual care concerns: No Exam Narrative: GENERAL: Well-appearing, well-nourished, and in no acute distress. HEAD: Normocephalic, atraumatic. EYES: PERRL and EOMI. CHEST: Clear to auscultation. No respiratory distress. HEART: Tachycardic and regular. Normal peripheral pulses. ABDOMEN: Soft, distended bladder to umbilicus that is tender, nondistended. EXTREMITIES: Normal range of motion. No edema. SKIN: Warm, dry, no rash. NEURO: Alert and oriented x3. PSYCH: Normal mood and affect. Course Course Emergency Course: Discussed case with Dr. Treadwell. Discontinue Bactrim and started on ceftriaxone. Admit to hospitalist service. Discussed case with Kellie. Will place in the IMCU. Patient is very 2 L IV fluid. We will continue IV fluids as well. Patient aware of diagnosis and treatment plan. Vital Signs Vital signs: Vital Signs Temperature 100.8 F H 04/15/21 15:20 Pulse Rate 136 H 04/15/21 15:20 Respiratory Rate 20 04/15/21 15:20 Blood Pressure 112/80 04/15/21 15:20 Pulse Oximetry 100 04/15/21 15:20 Temperature 100.1 F H 04/15/21 17:04 Pulse Rate 116 H 04/15/21 18:09 Respiratory Rate 20 04/15/21 18:09 Blood Pressure 119/70 04/15/21 18:09 Pulse Oximetry 97 04/15/21 18:09 Medical Decision Making Vital Signs Vital Signs: Vital Signs Temperature 100.8 F H 04/15/21 15:20 Pulse Rate 136 H 04/15/21 15:20 Respiratory Rate 20 04/15/21 15:20 Blood Pressure 112/80 04/15/21 15:20 Pulse Oximetry 100 04/15/21 15:20 Temperature 100.1 F H 04/15/21 17:04 Pulse Rate 116 H 04/15/21 18:09 Respiratory Rate 20 04/15/21 18:09 Blood Pressure 119/70
[2021-04-15 18:20] LABS: Add Urine Microscopic? YES; Appearance Urine Cloudy (Clear); Bacteria Urine 2+ /hpf; Bilirubin Urine Negative (Negative); Blood Urine 3+ (Negative); Color Urine Red (Yellow); Glucose Urine UA Negative (Negative); Ketones Urine Negative (Negative); Leukocyte Esterase Ur 2+ LEU/UL (Negative); Mucus Urine Moderate /lpf; Nitrate Urine Negative (Negative); Protein Urine 3+ mg/dL (Negative); RBC Urine >75 /hpf (0-2); Specific Grav Ur 1.014 (1.001-1.035); Urobilinogen Urine Negative mg/dL (<2.0); WBC Clumps Urine Present /HPF; WBC Urine >75 /hpf
[2021-04-15 19:02] LABS: Reflex Lactic Acid Yes or No Add Lactic
[2021-04-15 20:23] LABS: Lactic Acid 3.6 mmol/L (0.7-2.1)
--- NOTE | 2021-04-15 20:48 | ADMGEN ---
This patient, Patrick Crowley, was admitted to IMU Room 212-01 on 04/15/21 at 3. Patient/family oriented to hospital policies and general routines including ID bracelet, bed and alarms, visiting hours, pain management, procedures, bathroom and other care routines, personal items, smoking policy, room service/diet, and visiting hours. Information on how to activate the Rapid Response Team has been discussed. Patient/Family are encouraged to report perceived risks to care and to ask questions if they do not understand what they are told or what they should do.
[2021-04-15] MEDS: SODIUM CHLORIDE 0.9% IV 1,000 ML 125 ML IV CONT (22:28)
[2021-04-15] MEDS: SODIUM CHLORIDE 0.9% IV 500 ML 999 ML IV CONT ×2 (22:31→23:35)
--- NOTE | 2021-04-15 23:47 | PM.IMHP ---
H&P: HPI History of Present Illness Date/Time: 04/15/21 23:47 this is a 70-year-old male patient has a past medical history of having kidney stones with ureter stents. The patient had a procedure performed yesterday per Dr. lindo. The patient had a cystoscopy left ureteral stent removal and left ureteral scope be with retrograde pyelogram Rachael left ureteral stent replaced right ESWL see operative note from 04/14/2021. It was noted that the patient had lithotripsy for 2 stones on the right kidney. No immediate complications were noted. The patient had been taking Bactrim at home. The patient came into the emergency room due to acute urinary retention and fever. The patient stated he was only voiding small amounts. He was also having chills and pain to suprapubic region. No back pain or flank pain. Nicolas catheter was placed in the emergency room that has pink tinged urine. Abdominal x-ray was read as bilateral nephrolithiasis and bilateral internal ureteral stents in expected position performed yesterday. Dr. Treadwell has been consulted. The patient was given IV Tylenol as started on ceftriaxone. His white count was noted to be 18.4. H&H is 11.1 and 33.1 which is his baseline. Lactic level was 4.0 and then 3.6. Glucose 176. Urine was positive for UTI. The patient is being admitted to observation status on the date of service of 04/15/21 Chief Complaint: Urinary tension Review of Systems Review of Systems: All systems reviewed & are unremarkable except as noted in HPI and below Constitutional: Constitutional: Reports as per HPI and Reports no additional constitutional complaints Eyes: Eyes: Reports as per HPI and Reports no additional eye complaints ENT: Reports system reviewed and no additional complaints, except as documented and Reports Normal hearing present Cardiovascular: Cardiovascular: Reports no additional cardiovascular complaints Respiratory: Respiratory: Reports no additional respiratory complaints and Reports no additional respiratory complaints Gastrointestinal: Gastrointestinal: Reports as per HPI and Reports no additional gastrointestinal complaints Musculoskeletal: Musculoskeletal: Reports no additional musculoskeletal complaints Integumentary/Breasts: Skin/Breast: Reports system reviewed and no additional complaints, except as docu and Reports as per HPI Neurologic: Reports system reviewed and no additional complaints, except as documented, Reports as per HPI and Reports Normal hearing present Psychiatric: Psychiatric: Reports no additional psychiatric complaints and Reports as per HPI Endocrine: Endocrine: Reports no additional endocrine complaints Hematologic/Lymphatic: Hematologic/Lymphatic: Reports no additional hematologic/lymphatic complaints Allergic/Immunologic: Allergic/Immunologic: Reports no additional allergic/immunologic complaints [facility] Past Medical History Medical History (Updated 04/15/21 @ 23:53 by Kellie Bennett NP) HTN (hypertension) Medial meniscus tear Right knee pain Vision abnormalities Surgical History Surgical History (Updated 04/15/21 @ 23:53 by Kellie Bennett NP) H/O arthroscopic knee surgery Bilateral knees History of lithotripsy History of ureter stent Family History Family History Father Cerebrovascular accident Malignant neoplasm of prostate Congestive heart failure Mother Diabetes mellitus Parkinson disease Sibling Breast cancer Clotting disorder Coronary artery disease Social History Social History (Updated 04/15/21 @ 23:54 by Kellie Bennett NP) Social History: The patient is and lives with his who is the durable power outdoor recreation specialist for healthcare.. He is retired from working in the oil [employer]. He has 1 child. Lifelong nonsmoker. Does not use any marijuana alcohol or illicit drugs. Code status full code Smoking status: Never smoker Second hand tobacco
[2021-04-16] VITALS (18 sets, daily range): BP systolic 98–132; BP diastolic 58–79; PULSE 82–103; RESP 16–20; TEMP 36.5–37.9; O2SAT 93–98
[2021-04-16] MEDS: ACETAMINOPHEN 325 MG TABLET 650 MG PO ×3 (00:07→20:30)
--- NOTE | 2021-04-16 01:06 | PC.NURSE ---
Daylight Savings Time For Daylight Savings Time Ending in the Fall - Clocks are moved back. For Daylight Savings Time Beginning in the Spring - Clocks are moved ahead. For [facility], the time of change occurs at 0200 hrs. Time is taken from the restaurant server. This entry on the patient's chart recognizes the change in time reflected during documentation. Example: 2 entries for vital signs may be charted for 0200 hrs.
[2021-04-16] MEDS: SODIUM CHLORIDE 0.9% IV 1,000 ML 125 ML IV CONT ×3 (02:38→23:50)
--- NOTE | 2021-04-16 08:57 | PM.IMPN ---
Progress Note: A&P Assessment and Plan (1) Sepsis: Code(s): A41.9 - Sepsis, unspecified organism Status: Acute Assessment and Plan: The patient is hypotensive on presentation; [place] [phone] with left shift and eric pyuria on urinalysis. After Nicolas catheter placement, he was appropriately started on IV fluids and IV antibiotics with notable clinical improvement. His blood pressure is improving currently in the 113-127 / 67-79 range. Continue Rocephin. (2) Bilateral kidney stones: Code(s): N20.0 - Calculus of kidney Status: Acute Assessment and Plan: Urology has been consulted. The patient was admitted with urinary retention relieved after a Nicolas catheter was placed. he underwent left ureteroscopy with stent replacement on the left as well as lithotripsy of his right renal calculi. follow-up urology to more for management plan. (3) Retention of urine, unspecified: Code(s): R33.9 - Retention of urine, unspecified Status: Acute Assessment and Plan: Continue with Flomax. Patient's urine is draining a pink tinged urine at this time. Urology has been consulted. (4) Acute kidney injury: Code(s): N17.9 - Acute kidney failure, unspecified Status: Acute Assessment and Plan: Urology has been consulted. (5) HTN (hypertension): Code(s): I10 - Essential (primary) hypertension Status: Chronic Assessment and Plan: Patient is hypotensive and his amlodipine is on hold at this time. resume blood pressure medication when systolic blood pressure higher than 140/90. Subjective Date/time seen: This is a 70-year-old male patient has a past medical history of having kidney stones with ureter stents. The patient had a procedure performed yesterday per Dr. Reyes. The patient had a cystoscopy left ureteral stent removal and left ureteral scope be with retrograde pyelogram Vilas left ureteral stent replaced right ESWL see operative note from 04/14/2021. It was noted that the patient had lithotripsy for 2 stones on the right kidney. No immediate complications were noted. The patient had been taking Bactrim at home. The patient came into the emergency room due to acute urinary retention and fever. The patient stated he was only voiding small amounts. He was also having chills and pain to suprapubic region. No back pain or flank pain. Nicolas catheter was placed in the emergency room that has pink tinged urine. Abdominal x-ray was read as bilateral nephrolithiasis and bilateral internal ureteral stents in expected position performed yesterday. Dr. Treadwell has been consulted. The patient was given IV Tylenol as started on ceftriaxone. His white count was noted to be 18.4. H&H is 11.1 and 33.1 which is his baseline. Lactic level was 4.0 and then 3.6. Glucose 176. Urine was positive for UTI. The patient is being admitted to observation status on the date of service of 04/15/21. 04/16/21 08:57 S: Patient is examined at the bedside. He was admitted due to severe urinary retention. Nicolas was cardiac there was inserted and the patient is feeling a lot better this morning with a Nicolas catheter indwelling. Review of Systems Review of Systems: All systems reviewed & are unremarkable except as noted in HPI and below Constitutional: Constitutional: Reports as per HPI and Reports no additional constitutional complaints Eyes: Eyes: Reports as per HPI and Reports no additional eye complaints ENT: Reports system reviewed and no additional complaints, except as documented and Reports Normal hearing present Cardiovascular: Cardiovascular: Reports no additional cardiovascular complaints Respiratory: Respiratory: Reports no additional respiratory complaints and Reports no additional respiratory complaints Gastrointestinal: Gastrointestinal: Reports as per HPI and Reports no additional gastrointestinal complaints Musculoskeletal: M
--- NOTE | 2021-04-16 09:00 | WPDURCON ---
Assessment and Plan Assessment and plan (1) Retention of urine, unspecified: Code(s): R33.9 - Retention of urine, unspecified Status: Acute Assessment and Plan: Patient has failed multiple voiding trials. He is currently on Flomax. Will defer further workup to Dr. Reyes there appears that he may need definitive treatment at some point. Continue with Nicolas for the time being. (2) Urinary tract infection: Code(s): N39.0 - Urinary tract infection, site not specified Status: Acute Assessment and Plan: Continue with antibiotics. Cultures pending. Urology Consult Note HPI Date Seen: 04/16/21 Requesting Physician: Liliana Vidales MD Primary Care Provider: Jacques Soni, Consult Narrative Narrative: Patrick Crowley is a 70 year old male who is well known to Dr Reyes. Patient has a history of bilateral ureteral stent placements by Dr. Ortiz. After that he had an issue with urinary retention. He has failed several voiding trials. He subsequently underwent a procedure by Dr. mcmahan this past Saturday consisting of left ureteroscopy with stent replacement on the left as well as lithotripsy of his right renal calculi. Patient developed voiding difficulty postoperatively presented emergency room. [place] [id number] with a urinalysis that was leukocyte esterase positive in greater than 75 white cells. Nicolas catheter was placed in the emergency room for urinary retention patient feels he had at least over a L present. Patient denied any flank pain. Patient is feeling better this morning with a Nicolas catheter indwelling. Review of Systems Review of Systems: All systems reviewed & are unremarkable except as noted in HPI and below PMFSH Past Medical History Medical History HTN (hypertension) Medial meniscus tear Right knee pain Vision abnormalities Surgical History Surgical History H/O arthroscopic knee surgery Bilateral knees History of lithotripsy History of ureter stent Family History Family History Father Cerebrovascular accident Malignant neoplasm of prostate Congestive heart failure Mother Diabetes mellitus Parkinson disease Sibling Breast cancer Clotting disorder Coronary artery disease Social History Social History Social History: The patient is and lives with his who is the durable power sports attorney for healthcare.. 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 Lifelong nonsmoker. Does not use any marijuana alcohol or illicit drugs. Code status full code Smoking status: Never smoker Second hand tobacco smoke exposure: No Alcohol intake: never Substance use: never Substance use type: does not use Spiritual care concerns: No Meds Home Medications and Allergies Home Medications Medication Instructions Recorded Confirmed Type amlodipine 5 mg tablet 5 mg PO QNOON 11/26/19 04/15/21 History multivitamin,wx-spga-oictcduq 1 tablet PO DAILY 04/06/21 04/15/21 History sulfamethoxazole-trimethoprim 1 tablet PO Q12H #6 tablet 04/14/21 04/15/21 Rx tamsulosin [Flomax] 0.4 mg PO HS 04/15/21 04/15/21 History Allergies Allergy/AdvReac Type Severity Reaction Status Date / Time No Known Allergies Allergy Unknown Verified 04/15/21 21:11 Vital Signs Vital Signs - 24 hr 04/15/21 15:20 04/15/21 16:32 04/15/21 17:04 Temperature 38.2 C H 37.8 C H Pulse Rate 136 H 109 H Respiratory Rate 20 19 Blood Pressure 112/80 116/72 Pulse Oximetry 100 97 04/15/21 18:09 04/15/21 19:25 04/15/21 20:28 Temperature 37.2 C Pulse Rate 116 H 113 H 105 H Respiratory Rate 20 19 15 Blood Pressure 119/70 111/64 86/52 L Pulse Oximetry 97 97 98 1
[2021-04-16 17:47] LABS: Lactic Acid Reflex 1.6 mmol/L (0.7-2.1)
[2021-04-16] MEDS: TAMSULOSIN HCL 0.4 MG CAPSULE PO (20:30)
[2021-04-17] VITALS (18 sets, daily range): BP systolic 100–149; BP diastolic 63–87; PULSE 77–103; RESP 16–22; TEMP 36.9–38.8; O2SAT 92–97
[2021-04-17 05:21] LABS: Basophils Percent Auto 0.3 % (0.2-1.2); Eosinophils Percent Auto 0.4 % (0-4.4); Hematocrit 30.6 % (42.0-52.0); Immature Granulocyte Absolute 0.06 K/mm3 (0.00-0.031); Immature Granulocyte Percent A 0.6 % (0-0.5); Lymphocytes Absolute Auto 0.65 K/mm3 (0.9-3.2); Mean Corpuscular HGB Conc 32.7 g/dl (32-36); Mean Corpuscular Hemoglobin 29.8 pg (26-34); Mean Corpuscular Volume 91.1 fl (80-100); Mean Platelet Volume 8.3 fl (7.4-10.4); Monocytes Absolute Auto 0.7 K/mm3 (0.1-0.6); Monocytes Percent Auto 6.4 % (2.6-8.5); Neutrophils Absolute Auto 9.4 K/mm3 (1.3-6.7); Neutrophils Percent Auto 86.3 % (45.5-73.1); Platelet Count Result 159 k/mm3 (150-375); Red Blood Count 3.36 M/mm3 (4.6-6.20); Red Cell Distribution Width 13.3 % (11.5-14.5); White Blood Count 10.9 K/mm3 (4.5-10.0)
[2021-04-17 05:32] LABS: Alanine Aminotransferase 79 U/L (4-50); Alkaline Phosphatase 118 U/L (38-126); Anion Gap 7 mmol/L (8-16); Aspartate Amino Transferase 74 U/L (17-59); Bilirubin,Total 0.7 mg/dL (0.2-1.3); Blood Urea Nitrogen 19 mg/dL (9-20); Calcium 8.3 mg/dL (8.4-10.2); Carbon Dioxide 22 mmol/L (22-30); Chloride 110 mmol/L (98-107); Estimated CRCL calculation 87 ml/min; Estimated Glomerular Filt Rate > 60; Glucose 133 mg/dL (65-110); Potassium 3.7 mmol/L (3.4-5.0); Sodium 139 mmol/L (137-145)
[2021-04-17 05:38] LABS: Lactic Acid Reflex 1.1 mmol/L (0.7-2.1)
--- NOTE | 2021-04-17 07:01 | WPDUROPN2 ---
Progress Note: A&P Assessment and Plan (1) Urinary tract infection: Code(s): N39.0 - Urinary tract infection, site not specified Status: Acute (2) Bilateral kidney stones: Code(s): N20.0 - Calculus of kidney Status: Acute (3) Retention of urine, unspecified: Code(s): R33.9 - Retention of urine, unspecified Status: Acute Assessment and Plan: Blood cultures pos. with gram neg. rods. Await final sensitivities. Will plan to leave catheter indwelling until can perform urodynamics. Will increase Tamsulosin to bid and add Finasteride. Subjective Subjective Date/Time Seen: 04/17/21 07:01 Discouraged by urinary retention Review of Systems Cardiovascular: Cardiovascular: Denies chest pain, Denies lightheadedness, Denies palpitations and Denies dyspnea Respiratory: Respiratory: Denies dyspnea Gastrointestinal: Gastrointestinal: Denies diarrhea, Denies nausea and Denies vomiting Genitourinary: Genitourinary: Denies hematuria and Denies dysuria Endocrine: Endocrine: Denies palpitations Exam Const: General: no acute distress Resp: Effort & Inspection: normal respiratory effort GI: Inspection: non-distended GI Palp: No abdominal tenderness and No Guarding due to palpation present (GI) Auscultation: normal bowel sounds Objective Data Vital Signs Vital Signs: Vital Signs - 24 hr 04/16/21 08:00 04/16/21 10:00 04/16/21 12:00 Temperature 97.7 F 100.2 F H Pulse Rate 92 91 86 Respiratory Rate 16 20 Blood Pressure 113/67 127/79 Pulse Oximetry 95 96 04/16/21 12:10 04/16/21 13:10 04/16/21 14:00 Temperature 100.2 F H 98.9 F Pulse Rate 100 Respiratory Rate Blood Pressure Pulse Oximetry 04/16/21 16:00 04/16/21 18:00 04/16/21 20:00 Temperature 99.3 F 99.9 F H Pulse Rate 85 101 H 103 H Respiratory Rate 18 20 Blood Pressure 118/79 118/70 Pulse Oximetry 98 93 04/16/21 20:30 04/16/21 21:30 04/16/21 22:00 Temperature 99.9 F H 99.2 F Pulse Rate 90 Respiratory Rate Blood Pressure Pulse Oximetry 04/17/21 00:00 04/17/21 02:00 04/17/21 04:00 Temperature 98.7 F 98.7 F Pulse Rate 78 77 87 Respiratory Rate 16 16 Blood Pressure 100/63 119/69 Pulse Oximetry 97 95 04/17/21 04:05 04/17/21 06:00 Temperature Pulse Rate 84 79 Respiratory Rate Blood Pressure Pulse Oximetry Intake/Output Intake/Output: Intake & Output 04/15/21 04/16/21 04/16/21 04/17/21 00:59 00:59 23:59 23:59 Intake Total 375 Output Total 1350 Balance -975 Meds/Results Medications: Active Medications Generic Name Dose Route Start Last Admin Trade Name Freq PRN Reason Stop Dose Admin Acetaminophen 650 mg 04/15/21 18:02 04/16/21 20:30 Acetaminophen 325 Mg Tablet PO 650 mg Q4H PRN Administration Mild Pain (1-3) or Fever Hydrocodone Bitart/Acetaminophen 1 tab 04/15/21 18:02 Hydrocodone/Acetaminophen (*Crx) 5-325 Mg Tablet PO Q4H PRN Pain Rated 4-6 Ceftriaxone Sodium/Dextrose 1 gm in 50 mls @ 100 mls/hr 04/16/21 17:00 04/16/21 17:15 Rocephin 1 Gm/D5w 50 Ml IVPB Infused Q24H TOI Infusion Sodium Chloride 1,000 mls @ 125 mls/hr 04/15/21 18:05 04/16/21 23:50 Normal Saline Iv IV CONT 125 mls/hr .Q8H TOI Administration Morphine Sulfate 4 mg 04/15/21 18:02 Morphine Sulfate (*Crx) 4 Mg/Ml Inj IV PUSH Q2H PRN Pain Rated 7-10 Promethazine HCl 12.5 mg 04/15/21 18:02 Promethazine Hcl 25 Mg/Ml Ampul IV PUSH Q6H PRN Nausea Tamsulosin HCl 0.4 mg 04/16/21 21:00 04/16/21 20:30 Tamsulosin Hcl 0.4 Mg Capsule PO 0.4 mg HS TOI Administration Labs Labs: Laboratory Results - last 24 hr 04/16/21 04/17/21 04/17/21 17:30 05:05 05:05 WBC 10.9 H RBC 3.36 L Hgb 10.0 L Hct 30.6 L MCV 91.1 MCH 29.8 MCHC 32.7 RDW 13.3 Plt Count 159 MPV 8.3 Immature Gran % (Auto) 0.6 H Neut % (Auto) 86.3 H Lym
[2021-04-17 07:20] LABS: Glucose Point of Care 123 mg/dl (65-105)
--- NOTE | 2021-04-17 07:48 | PM.IMPN ---
Progress Note: A&P Assessment and Plan (1) Sepsis: Code(s): A41.9 - Sepsis, unspecified organism Status: Acute Assessment and Plan: The patient was previously hypotensive at presentation; [place] [id number] with left shift and eric pyuria on urinalysis. After Nicolas catheter placement, he was appropriately started on IV fluids and IV antibiotics with notable clinical improvement. Urine and blood cultures are revealing Gram negative bacilli. His blood pressure is improving currently in the 141/82-149/87 range. Continue Rocephin. Consider resuming BP meds in AM. (2) Bilateral kidney stones: Code(s): N20.0 - Calculus of kidney Status: Acute Assessment and Plan: Urology has been consulted. The patient was admitted with urinary retention relieved after a Nicolas catheter was placed. he underwent left ureteroscopy with stent replacement on the left as well as lithotripsy of his right renal calculi. follow-up urology to more for management plan. (3) Retention of urine, unspecified: Code(s): R33.9 - Retention of urine, unspecified Status: Acute Assessment and Plan: Per urology resommendations, flomax was increased and finasteride was initiated. (4) Acute kidney injury: Code(s): N17.9 - Acute kidney failure, unspecified Status: Acute Assessment and Plan: Creatinine has been in the 0.8-0.9 range which likely represents his baseline. After urinary retention was lifted, there was vigorous urinary production with over 3 liters of urinary output overnight. (5) HTN (hypertension): Code(s): I10 - Essential (primary) hypertension Status: Chronic Assessment and Plan: Patient is hypotensive and his amlodipine is on hold at this time. resume blood pressure medication in AM if systolic blood pressure remains higher than 140/90. Subjective Date/time seen: 04/17/21 07:48 S: Patient is examined at the bedside. He is feeling a lot better. No active complaints. Review of Systems Review of Systems: All systems reviewed & are unremarkable except as noted in HPI and below Constitutional: Constitutional: Reports as per HPI and Reports no additional constitutional complaints Eyes: Eyes: Reports as per HPI and Reports no additional eye complaints ENT: Reports system reviewed and no additional complaints, except as documented and Reports Normal hearing present Cardiovascular: Cardiovascular: Reports no additional cardiovascular complaints and Denies leg edema Respiratory: Respiratory: Reports no additional respiratory complaints and Reports no additional respiratory complaints Gastrointestinal: Gastrointestinal: Reports as per HPI and Reports no additional gastrointestinal complaints Genitourinary: Genitourinary: Reports no additional male genitourinary complaints Musculoskeletal: Musculoskeletal: Reports no additional musculoskeletal complaints Integumentary/Breasts: Skin/Breast: Reports system reviewed and no additional complaints, except as docu and Reports as per HPI Neurologic: Reports system reviewed and no additional complaints, except as documented, Reports as per HPI and Reports Normal hearing present Psychiatric: Psychiatric: Reports no additional psychiatric complaints and Reports as per HPI Endocrine: Endocrine: Reports no additional endocrine complaints Hematologic/Lymphatic: Hematologic/Lymphatic: Reports no additional hematologic/lymphatic complaints Allergic/Immunologic: Allergic/Immunologic: Reports no additional allergic/immunologic complaints Exam Const: General: cooperative, healthy appearing, comfortable, no acute distress, well developed, alert, awake and Physically active Nutritional Appearance: average body habitus and thin Orientation/consciousness: oriented to person, oriented to place, oriented to time and patient oriented x3 Limitations: no limitations HENMT: Head: normal to inspection, No palp
[2021-04-17] MEDS: TAMSULOSIN HCL 0.4 MG CAPSULE PO ×2 (08:40→20:13)
[2021-04-17] MEDS: FINASTERIDE 5 MG TABLET PO (08:40)
[2021-04-17] MEDS: SODIUM CHLORIDE 0.9% IV 1,000 ML 125 ML IV CONT ×2 (08:44→16:52)
[2021-04-17] MEDS: POTASSIUM CHLORIDE 20 MEQ TABLET PO (16:50)
[2021-04-17] MEDS: ACETAMINOPHEN 325 MG TABLET 650 MG PO (16:51)
--- NOTE | 2021-04-17 17:46 | PC.NURSE ---
This patient, Patrick Crowley, was transferred to [facility] on 04/17/21 at 1746. Personal belongings sent with patient. Report given to JOHN Naik. Appropriate documentation sent with patient.
--- NOTE | 2021-04-17 17:56 | PC.NURSE ---
This patient, Patrick Crowley, was received from IMU on 04/17/21 at 1744. Patient/family oriented to unit policies and routines
[2021-04-18] VITALS (9 sets, daily range): BP systolic 136–157; BP diastolic 79–92; PULSE 65–103; RESP 16–20; TEMP 36.4–38.1; O2SAT 92–98
[2021-04-18] MEDS: SODIUM CHLORIDE 0.9% IV 1,000 ML 125 ML IV CONT ×3 (01:45→20:42)
[2021-04-18] MEDS: ACETAMINOPHEN 325 MG TABLET 650 MG PO (04:32)
--- NOTE | 2021-04-18 07:00 | WPDUROPN2 ---
Progress Note: A&P Assessment and Plan (1) Urinary tract infection: Code(s): N39.0 - Urinary tract infection, site not specified Status: Acute (2) Bilateral kidney stones: Code(s): N20.0 - Calculus of kidney Status: Acute (3) Retention of urine, unspecified: Code(s): R33.9 - Retention of urine, unspecified Status: Acute Assessment and Plan: Blood cultures pos. with gram neg. rods. Await final sensitivities. Will plan to leave catheter indwelling until can perform urodynamics. Will increase Tamsulosin to bid and add Finasteride. 04/18/2021 Await completion of cultures. Catheter to remain indwelling until urodynamics can be performed. Subjective Subjective Date/Time Seen: 04/18/21 07:00 Comfortable, low-grade temp. persists Review of Systems Cardiovascular: Cardiovascular: Denies chest pain, Denies lightheadedness, Denies palpitations and Denies dyspnea Respiratory: Respiratory: Denies dyspnea Gastrointestinal: Gastrointestinal: Denies diarrhea, Denies nausea and Denies vomiting Genitourinary: Genitourinary: Denies hematuria and Denies dysuria Endocrine: Endocrine: Denies palpitations Exam Const: General: no acute distress Resp: Effort & Inspection: normal respiratory effort GI: Inspection: non-distended GI Palp: No abdominal tenderness and No Guarding due to palpation present (GI) Auscultation: normal bowel sounds Objective Data Vital Signs Vital Signs: Vital Signs - 24 hr 04/17/21 08:00 04/17/21 10:00 04/17/21 12:00 Temperature 98.4 F Pulse Rate 90 94 103 H Respiratory Rate 16 Blood Pressure 133/77 Pulse Oximetry 94 04/17/21 12:31 04/17/21 14:00 04/17/21 16:00 Temperature 99.3 F Pulse Rate 91 92 99 Respiratory Rate 20 Blood Pressure 141/82 H Pulse Oximetry 97 04/17/21 16:51 04/17/21 17:02 04/17/21 18:13 Temperature 101.8 F H 101.8 F H 100.4 F H Pulse Rate 98 98 Respiratory Rate 22 H 18 Blood Pressure 149/87 H 139/79 Pulse Oximetry 95 94 04/17/21 19:15 04/17/21 20:00 04/17/21 22:30 Temperature 99.1 F 98.7 F Pulse Rate 79 Respiratory Rate 20 Blood Pressure 138/76 Pulse Oximetry 97 95 04/17/21 23:59 04/18/21 00:00 04/18/21 04:00 Temperature 99.6 F 100.5 F H Pulse Rate 86 84 82 Respiratory Rate 18 20 Blood Pressure 130/73 136/79 Pulse Oximetry 92 93 04/18/21 04:32 04/18/21 05:32 Temperature 100.5 F H 100.2 F H Pulse Rate Respiratory Rate Blood Pressure Pulse Oximetry Intake/Output Intake/Output: Intake & Output 04/16/21 04/16/21 04/17/21 04/18/21 00:59 23:59 23:59 23:59 Intake Total 3145 1240 Output Total 3020 1900 Balance 120 -660 Meds/Results Medications: Active Medications Generic Name Dose Route Start Last Admin Trade Name Freq PRN Reason Stop Dose Admin Acetaminophen 650 mg 04/15/21 18:02 04/18/21 04:32 Acetaminophen 325 Mg Tablet PO 650 mg Q4H PRN Administration Mild Pain (1-3) or Fever Hydrocodone Bitart/Acetaminophen 1 tab 04/15/21 18:02 Hydrocodone/Acetaminophen (*Crx) 5-325 Mg Tablet PO Q4H PRN Pain Rated 4-6 Finasteride 5 mg 04/17/21 09:00 04/17/21 08:40 Finasteride 5 Mg Tablet PO 5 mg QAM TOI Administration Ceftriaxone Sodium/Dextrose 1 gm in 50 mls @ 100 mls/hr 04/16/21 17:00 04/17/21 17:23 Rocephin 1 Gm/D5w 50 Ml IVPB Infused Q24H TOI Infusion Sodium Chloride 1,000 mls @ 125 mls/hr 04/15/21 18:05 04/18/21 01:45 Normal Saline Iv IV CONT 125 mls/hr .Q8H TOI Administration Morphine Sulfate 4 mg 04/15/21 18:02 Morphine Sulfate (*Crx) 4 Mg/Ml Inj IV PUSH Q2H PRN Pain Rated 7-10 Promethazine HCl 12.5 mg 04/15/21 18:02 Promethazine Hcl 25 Mg/Ml Ampul IV PUSH Q6H PRN Nausea Tamsulosin HCl 0.4 mg 04/17/21 09:04/17/21 20:13 Tamsulosin Hcl 0.4 Mg Capsule PO 0.4 mg Q12HR TOI Administration Labs Labs: Laboratory R
[2021-04-18] MEDS: TAMSULOSIN HCL 0.4 MG CAPSULE PO ×2 (08:51→20:43)
[2021-04-18] MEDS: FINASTERIDE 5 MG TABLET PO (08:51)
[2021-04-18] MEDS: DOCUSATE SODIUM 100 MG CAPSULE PO ×2 (10:15→20:43)
--- NOTE | 2021-04-18 11:12 | PM.IMPN ---
Progress Note: A&P Assessment and Plan (1) Sepsis: Code(s): A41.9 - Sepsis, unspecified organism Status: Acute Assessment and Plan: The patient was septic at presentation with hypotension, elevated white blood cell count with 18,000 and a left shift and pyuria on urinalysis. He was started on IV fluids and IV antibiotics with notable clinical improvement. Urine and blood cultures are growing Klebsiella sensitive to Levaquin and imipenem. Currently blood pressure is stable in the 136/79-148/92 range. We have stopped Rocephin. We have started levaquin. Continue BP monitoring. (2) Bilateral kidney stones: Code(s): N20.0 - Calculus of kidney Status: Acute Assessment and Plan: Urology has been consulted. The patientwill keep catheter indwelling until can perform urodynamics. (3) Retention of urine, unspecified: Code(s): R33.9 - Retention of urine, unspecified Status: Acute Assessment and Plan: Per urology resommendations, flomax was increased and finasteride was initiated. (4) Acute kidney injury: Code(s): N17.9 - Acute kidney failure, unspecified Status: Acute Assessment and Plan: Creatinine has been in the 0.8-0.9 range which likely represents his baseline. After urinary retention was lifted, there was vigorous urinary production with over 3.5 liters of urinary output overnight. (5) HTN (hypertension): Code(s): I10 - Essential (primary) hypertension Status: Chronic Assessment and Plan: Patient was hypotensive and his amlodipine is on hold at this time. His tamsulocin dose was increased per urology recommendations. Resume blood pressure medication in AM if systolic blood pressure remains higher than 140/90. Subjective Date/time seen: 04/18/21 10:12 S:The patient was examined at the bedside he is feeling a lot better. He was complaining of constipation. Review of Systems Review of Systems: All systems reviewed & are unremarkable except as noted in HPI and below Constitutional: Constitutional: Reports as per HPI and Reports no additional constitutional complaints Eyes: Eyes: Reports as per HPI and Reports no additional eye complaints ENT: Reports system reviewed and no additional complaints, except as documented and Reports Normal hearing present Cardiovascular: Cardiovascular: Reports no additional cardiovascular complaints and Denies leg edema Respiratory: Respiratory: Reports no additional respiratory complaints and Reports no additional respiratory complaints Gastrointestinal: Gastrointestinal: Reports as per HPI and Reports no additional gastrointestinal complaints Genitourinary: Genitourinary: Reports no additional male genitourinary complaints Musculoskeletal: Musculoskeletal: Reports no additional musculoskeletal complaints Integumentary/Breasts: Skin/Breast: Reports system reviewed and no additional complaints, except as docu and Reports as per HPI Neurologic: Reports system reviewed and no additional complaints, except as documented, Reports as per HPI and Reports Normal hearing present Psychiatric: Psychiatric: Reports no additional psychiatric complaints and Reports as per HPI Endocrine: Endocrine: Reports no additional endocrine complaints Hematologic/Lymphatic: Hematologic/Lymphatic: Reports no additional hematologic/lymphatic complaints Allergic/Immunologic: Allergic/Immunologic: Reports no additional allergic/immunologic complaints Exam Const: General: cooperative, healthy appearing, comfortable, no acute distress, well developed, alert, awake and Physically active Nutritional Appearance: average body habitus and thin Orientation/consciousness: oriented to person, oriented to place, oriented to time and patient oriented x3 Limitations: no limitations HENMT: Head: normal to inspection, No palpable skull fracture present, normocephalic and atraumatic Ears: hearing grossly normal bilaterally and external ears
[2021-04-19] VITALS (8 sets, daily range): BP systolic 131–154; BP diastolic 74–90; PULSE 68–96; RESP 2–20; TEMP 36.6–37.7; O2SAT 92–96
[2021-04-19] MEDS: SODIUM CHLORIDE 0.9% IV 1,000 ML 125 ML IV CONT ×3 (05:33→23:49)
[2021-04-19 05:58] LABS: Basophils Percent Auto 0.3 % (0.2-1.2); Eosinophils Absolute Auto 0.1 K/mm3 (0-0.3); Eosinophils Percent Auto 1.8 % (0-4.4); Hematocrit 26.3 % (42.0-52.0); Hemoglobin 8.9 g/dL (14.0-18.0); Immature Granulocyte Absolute 0.04 K/mm3 (0.00-0.031); Immature Granulocyte Percent A 0.7 % (0-0.5); Lymphocytes Absolute Auto 0.77 K/mm3 (0.9-3.2); Lymphocytes Percent Auto 12.5 % (18.3-44.2); Mean Corpuscular HGB Conc 33.8 g/dl (32-36); Mean Corpuscular Hemoglobin 29.9 pg (26-34); Mean Corpuscular Volume 88.3 fl (80-100); Mean Platelet Volume 8.6 fl (7.4-10.4); Monocytes Absolute Auto 0.8 K/mm3 (0.1-0.6); Monocytes Percent Auto 13.4 % (2.6-8.5); Neutrophils Absolute Auto 4.4 K/mm3 (1.3-6.7); Neutrophils Percent Auto 71.3 % (45.5-73.1); Platelet Count Result 169 k/mm3 (150-375); Red Blood Count 2.98 M/mm3 (4.6-6.20); White Blood Count 6.1 K/mm3 (4.5-10.0)
[2021-04-19 06:07] LABS: Anion Gap 7 mmol/L (8-16); Blood Urea Nitrogen 16 mg/dL (9-20); Calcium 8.2 mg/dL (8.4-10.2); Carbon Dioxide 22 mmol/L (22-30); Chloride 109 mmol/L (98-107); Estimated CRCL calculation 98 ml/min; Estimated Glomerular Filt Rate > 60; Glucose 117 mg/dL (65-110); Potassium 3.7 mmol/L (3.4-5.0); Sodium 138 mmol/L (137-145)
--- NOTE | 2021-04-19 07:19 | PM.IMPN ---
Progress Note: A&P Assessment and Plan (1) Sepsis: Code(s): A41.9 - Sepsis, unspecified organism Status: Acute Assessment and Plan: The patient was septic at presentation with hypotension, elevated white blood cell count with 18,000 and a left shift and pyuria on urinalysis. He was started on IV fluids and IV antibiotics with notable clinical improvement. Urine and blood cultures are growing Klebsiella sensitive to Levaquin and imipenem. Currently blood pressure is stable in the 136/79-148/92 range. Continue Levaquin. We will consider reinstating his blood pressure medication in a.m.. As of today his blood pressure have been in the 131/77-141/81 range. Continue BP monitoring. (2) Bilateral kidney stones: Code(s): N20.0 - Calculus of kidney Status: Acute Assessment and Plan: Urology has been consulted. The patient will keep catheter indwelling until can perform urodynamics. (3) Retention of urine, unspecified: Code(s): R33.9 - Retention of urine, unspecified Status: Acute Assessment and Plan: Per urology resommendations, flomax was increased and finasteride was initiated. (4) Acute kidney injury: Code(s): N17.9 - Acute kidney failure, unspecified Status: Acute Assessment and Plan: Creatinine has been in the 0.7-0.9 range which likely represents his baseline. After urinary retention was lifted, there was vigorous urinary production with close to 5.5 liters of urinary output overnight. (5) HTN (hypertension): Code(s): I10 - Essential (primary) hypertension Status: Chronic Assessment and Plan: Patient was hypotensive and his amlodipine is on hold at this time. His tamsulocin dose was increased per urology recommendations. Resume blood pressure medication tomorrow if blood pressure rises higher than 140/90. Subjective Date/time seen: 04/19/21 07:19 S : Patient was examined at the bedside. The he reports some chills yesterday, but has not experience them overnight. He is feeling a little better. He has been walking in the room and staying out of bed to chair. Review of Systems Review of Systems: All systems reviewed & are unremarkable except as noted in HPI and below Constitutional: Constitutional: Reports as per HPI and Reports no additional constitutional complaints Eyes: Eyes: Reports as per HPI and Reports no additional eye complaints ENT: Reports system reviewed and no additional complaints, except as documented and Reports Normal hearing present Cardiovascular: Cardiovascular: Reports no additional cardiovascular complaints and Denies leg edema Respiratory: Respiratory: Reports no additional respiratory complaints and Reports no additional respiratory complaints Gastrointestinal: Gastrointestinal: Reports as per HPI and Reports no additional gastrointestinal complaints Genitourinary: Genitourinary: Reports no additional male genitourinary complaints Musculoskeletal: Musculoskeletal: Reports no additional musculoskeletal complaints Integumentary/Breasts: Skin/Breast: Reports system reviewed and no additional complaints, except as docu and Reports as per HPI Neurologic: Reports system reviewed and no additional complaints, except as documented, Reports as per HPI and Reports Normal hearing present Psychiatric: Psychiatric: Reports no additional psychiatric complaints and Reports as per HPI Endocrine: Endocrine: Reports no additional endocrine complaints Hematologic/Lymphatic: Hematologic/Lymphatic: Reports no additional hematologic/lymphatic complaints Allergic/Immunologic: Allergic/Immunologic: Reports no additional allergic/immunologic complaints Exam Const: General: cooperative, healthy appearing, comfortable, no acute distress, well developed, alert, awake and Physically active Nutritional Appearance: average body habitus and thin Orientation/consciousness: oriented to person, oriented to place, oriented to time a
[2021-04-19] MEDS: FINASTERIDE 5 MG TABLET PO (08:24)
[2021-04-19] MEDS: TAMSULOSIN HCL 0.4 MG CAPSULE PO ×2 (08:24→20:56)
[2021-04-19] MEDS: DOCUSATE SODIUM 100 MG CAPSULE PO (08:24)
[2021-04-19 08:29] LABS: Iron 16 ug/dL (49-181)
[2021-04-19 08:38] LABS: Transferrin 146 mg/dL (206-381)
[2021-04-19 08:39] LABS: Percent Iron Saturation 7 % (20-50)
--- NOTE | 2021-04-19 13:13 | WPDINFPN2 ---
Progress Note: A&P Assessment and Plan (1) Urinary tract infection: Code(s): N39.0 - Urinary tract infection, site not specified Status: Acute Assessment and Plan: uti with bacteremia and infection REC Ertapenem through 04/27 and midline, see orders. Ok discharge planning, once daily outpatient infusion at [facility] would be acceptable to patient. F/U Dr. Reyes. Call if Qs Subjective Date/time seen: 04/19/21 13:13 Objective Data Vital Signs Vital Signs: Vital Signs - 24 hr 04/18/21 16:00 04/18/21 20:00 04/19/21 00:00 Temperature 36.4 C L 37.8 C H 37.7 C H Pulse Rate 96 103 H 78 Respiratory Rate 18 20 2 L Blood Pressure 157/86 H 148/83 H 141/81 H Pulse Oximetry 96 98 92 04/19/21 04:00 04/19/21 10:00 Temperature 37.1 C 36.8 C Pulse Rate 77 94 Respiratory Rate 20 18 Blood Pressure 131/77 147/79 H Pulse Oximetry 93 94 Intake/Output Intake/Output: Intake & Output 04/16/21 04/17/21 04/18/21 04/19/21 23:59 23:59 23:59 23:59 Intake Total 3145 4970 1290 Output Total 3025 5760 1600 Balance 120 -030 310 Meds/Results Medications: Active Medications Generic Name Dose Route Start Last Admin Trade Name Freq PRN Reason Stop Dose Admin Acetaminophen 650 mg 04/15/21 18:02 04/18/21 04:32 Acetaminophen 325 Mg Tablet PO 650 mg Q4H PRN Administration Mild Pain (1-3) or Fever Hydrocodone Bitart/Acetaminophen 1 tab 04/15/21 18:02 Hydrocodone/Acetaminophen (*Crx) 5-325 Mg Tablet PO Q4H PRN Pain Rated 4-6 Amlodipine Besylate 5 mg 04/20/21 12:00 Amlodipine Besylate 5 Mg Tablet PO NOON TOI Docusate Sodium 100 mg 04/18/21 09:30 04/19/21 08:24 Docusate Sodium 100 Mg Capsule PO 100 mg Q12HR TOI Administration Finasteride 5 mg 04/17/21 09:00 04/19/21 08:24 Finasteride 5 Mg Tablet PO 5 mg QAM TOI Administration Sodium Chloride 1,000 mls @ 125 mls/hr 04/15/21 18:05 04/19/21 05:33 Normal Saline Iv IV CONT 125 mls/hr .Q8H TOI Administration Levofloxacin/Dextrose 750 mg in 150 mls @ 100 mls/hr 04/18/21 12:00 04/19/21 11:27 Levaquin 750 Mg/D5w 150 Ml IVPB 100 mls/hr NOON OTI Administration Morphine Sulfate 4 mg 04/15/21 18:02 Morphine Sulfate (*Crx) 4 Mg/Ml Inj IV PUSH Q2H PRN Pain Rated 7-10 Polyethylene Glycol 17 gm 04/18/21 09:20 Polyethylene Glycol 3350 17 Gm Powd.Pack PO QAM PRN Constipation Promethazine HCl 12.5 mg 04/15/21 18:02 Promethazine Hcl 25 Mg/Ml Ampul IV PUSH Q6H PRN Nausea Tamsulosin HCl 0.4 mg 04/17/21 09:00 04/19/21 08:24 Tamsulosin Hcl 0.4 Mg Capsule PO 0.4 mg Q12HR TOI Administration Labs Labs: Laboratory Results - last 24 hr 04/19/21 04/19/21 04/19/21 05:14 05:14 07:36 WBC 6.1 RBC 2.98 L Hgb 8.9 L Hct 26.3 L MCV 88.3 MCH 29.9 MCHC 33.8 RDW 13.0 Plt Count 169 MPV 8.6 Immature Gran % (Auto) 0.7 H Neut % (Auto) 71.3 Lymph % (Auto) 12.5 L [place] % (Auto) 13.4 H Eos % (Auto) 1.8 Baso % (Auto) 0.3 Lymph # (Auto) 0.77 L [place] # (Auto) 0.8 H Eos # (Auto) 0.1 Baso # (Auto) 0.0 Abs Immat Gran (auto) 0.04 H Absolute Neuts (auto) 4.4 Absolute Nucleated RBC 0.0 Nucleated RBC % 0.0 Sodium 138 Potassium 3.7 Chloride 109 H Carbon Dioxide 22 Anion Gap 7 L BUN 16 Creatinine 0.70 Estim Creat Clear Calc 98 Estimated GFR > 60 Glucose 117 H Calcium 8.2 L Iron 16 L TIBC 240 L % Saturation 7 L Transferrin Ferritin 97.70 04/19/21 07:36 WBC RBC Hgb Hct MCV MCH MCHC RDW Plt Count MPV Immature Gran % (Auto) Neut % (Auto) Lymph % (Auto) [place] % (Auto) Eos % (Auto) Baso % (Auto) Lymph # (Auto) [place] # (Auto) Eos # (Auto) Baso # (Auto) Abs Immat Gran (auto) Absolute Neuts (auto) Absolute Nucleated RBC Nucleated RBC % Sodium Potassium Chloride Carbo
[2021-04-19] MEDS: LIDOCAINE HCL 1% LOCAL INJ 2 ML AMPUL 5 ML INFILTRATE (14:05)
--- NOTE | 2021-04-19 14:35 | CONS_ITS ---
DATE OF CONSULTATION: 04/19/2021 REASON FOR CONSULTATION: UTI. HISTORY OF PRESENT ILLNESS: 70-year-old male who was in his usual state of good health until about 5 weeks prior to admission when he developed gross hematuria. He had a CT done, which revealed stones that apparently were not obstructing. He also was told he had an infection and was given trimethoprim sulfa for 1 week. He had resolution in his hematuria. He was set up for elective stone treatment, which was accomplished one day before admission on the right side with the left side deferred until later. He has otherwise been on no recent antibiotics. However, in the evening after the procedure, he developed hematuria once again followed by dysuria and urinary hesitancy. Also was voiding small amounts. He did not check his temperature at home. He presented to the emergency room, was given ceftriaxone. This was changed to levofloxacin yesterday. Consultation requested. He has had placement of a Nicolas catheter while here. No other operative interventions during this illness and his chills have resolved. Nicolas catheter remains in place and will for the immediate future. He is on no immunosuppressants, nor any received recently and no abdominal pain, nausea, vomiting, constipation, or diarrhea. ALLERGIES: NONE KNOWN. HABITS: No tobacco. No alcohol. PRESENT MEDICATIONS: See above. FAMILY HISTORY: Stroke, heart disease, Parkinson's, diabetes, prostate cancer. PAST MEDICAL HISTORY: Arthroscopic knee surgery for medial meniscus tear, also hypertension. SOCIAL HISTORY: Retired from the [id number] in [place]. He is . One child. Lives locally in the [place] area. REVIEW OF SYSTEMS: 14-point review otherwise negative. PHYSICAL EXAMINATION: GENERAL: This is an elderly male who appears younger than his actual age. No acute distress. VITAL SIGNS: His temperature on the evening of admission up to 37.7 and the following day up to 38.8. In the last 24 hours, 37.8, 94, 18, 94%, 147/79. SKIN: Warm and dry. No rashes. No ulcers. NODES: He has no axillary or cervical adenopathy. EENT: The conjunctivae are normal. Pupils equal, round, reactive to light. Oropharynx, oral mucosa normal. Teeth in good repair. NECK: No masses, thyromegaly or meningismus. LUNGS: Clear to auscultation and percussion. BACK: No CVAT. CARDIAC: Regular rate and rhythm. No murmur, gallop, or rub. ABDOMEN: Soft, nontender. No mass. No organomegaly. EXTREMITIES: No clubbing, cyanosis, or edema. Well perfused. Pulses 2+. LABORATORY DATA: Blood and urine cultures with Klebsiella oxytoca, ESBL broadcast producer. A urine culture from 04/07 was no growth; 04/01, no growth; 03/31, no growth. White blood cell count 6.1, down from 10.9 and was 18.4 on arrival. Hemoglobin is down 2 points to 8.9, and platelets are 169. Differential is normal. Chemistry normal except for hyperchloremia. Glucose initially 176, now normal. Lactate was high, now normalized. Transaminases twice normal. Albumin 3.0. Urinalysis, multiple abnormalities, which are reviewed. RADIOLOGY: KUB, bilateral ureteral stents and kidney stones. ASSESSMENT: 1. Complicated urinary tract infection with stones and hydronephrosis and bladder outlet obstruction, now relieved with stent placement prior to admission, as well as a Nicolas catheter. His outlet obstruction may have been due in part to cystitis, though prostate enlargement is also under consideration. Other sources of his bacteremia are very unlikely. Other sources of his rigors, fever, and leukocytosis are very unlikely. Suspicion for renal abscess is low but not excluded. 2. Nephrolithiasis. 3. Hypertension. 4. Immunocompetent. RECOMMENDATIONS: 1. Given the resistance
[2021-04-19] MEDS: ERTAPENEM 1 GM/NS 50 ML 1 GM/50 ML BAG IVPB (15:14)
--- NOTE | 2021-04-19 15:38 | WPDUROPN2 ---
Progress Note: A&P Assessment and Plan (1) Urinary tract infection: Code(s): N39.0 - Urinary tract infection, site not specified Status: Acute Assessment and Plan: Continue IV antibiotics, patient will need to go home on IV antibiotics daily for 7 days. (2) Sepsis: Code(s): A41.9 - Sepsis, unspecified organism Status: Acute Assessment and Plan: Improved, creatinine is normal. (3) Bilateral kidney stones: Code(s): N20.0 - Calculus of kidney Status: Acute Assessment and Plan: KUB on 04/14/2021 shows bilateral stones and stents in place. Will further evaluate in the office at his f/u appt. Plan to get another KUB in two weeks to re-evaluate. (4) Retention of urine, unspecified: Code(s): R33.9 - Retention of urine, unspecified Status: Acute Assessment and Plan: Plan to keep goodwin in until we are able to do urodynamics in the office. He has a f/u scheduled with Dr. Reyes next week. Continue Flomax BID and Finasteride. No further evaluation at this time, ok to discharge at any time. Subjective Subjective Date/Time Seen: 04/19/21 15:38 POD #5 Cys[place]py left stent exchange, left ureteroscopy with retrograde pyelogram and right ESWL. Patient is afebrile, feeling much better but has a multi-drug resistant organism growing on his urine culture. He is also in retention, and we have increased Tamsulosin to BID and he is taking Finasteride. Review of Systems Cardiovascular: Cardiovascular: Denies chest pain Respiratory: Respiratory: Reports no additional respiratory complaints Gastrointestinal: Gastrointestinal: Denies abdominal pain, Denies nausea and Denies vomiting Genitourinary: Genitourinary: Denies hematuria, Denies dysuria, Denies flank pain and Denies urinary frequency Exam Resp: Effort & Inspection: normal respiratory effort Cardio: Rate: regular rate GI: GI Palp: Yes Soft to palpation and No Tenderness to palpation present (GI) : General: Yes no CVA tenderness Urinary Catheter: Urinary Catheter: patent and draining and urine clear Extrem: General: no edema Objective Data Vital Signs Vital Signs: Vital Signs - 24 hr 04/18/21 16:00 04/18/21 20:00 04/19/21 00:00 Temperature 97.5 F L 100.0 F H 99.8 F H Pulse Rate 96 103 H 78 Respiratory Rate 18 20 2 L Blood Pressure 157/86 H 148/83 H 141/81 H Pulse Oximetry 96 98 92 04/19/21 04:00 04/19/21 10:00 Temperature 98.8 F 98.2 F Pulse Rate 77 94 Respiratory Rate 20 18 Blood Pressure 131/77 147/79 H Pulse Oximetry 93 94 Intake/Output Intake/Output: Intake & Output 04/16/21 04/17/21 04/18/21 04/19/21 23:59 23:59 23:59 23:59 Intake Total 3148 4970 2290 Output Total 3027 4793 1600 Balance 120 -790 690 Meds/Results Medications: Active Medications Generic Name Dose Route Start Last Admin Trade Name Freq PRN Reason Stop Dose Admin Acetaminophen 650 mg 04/15/21 18:02 04/18/21 04:32 Acetaminophen 325 Mg Tablet PO 650 mg Q4H PRN Administration Mild Pain (1-3) or Fever Hydrocodone Bitart/Acetaminophen 1 tab 04/15/21 18:02 Hydrocodone/Acetaminophen (*Crx) 5-325 Mg Tablet PO Q4H PRN Pain Rated 4-6 Amlodipine Besylate 5 mg 04/20/21 12:00 Amlodipine Besylate 5 Mg Tablet PO NOON TOI Docusate Sodium 100 mg 04/18/21 09:30 04/19/21 08:24 Docusate Sodium 100 Mg Capsule PO 100 mg Q12HR TOI Administration Finasteride 5 mg 04/17/21 09:00 04/19/21 08:24 Finasteride 5 Mg Tablet PO 5 mg QAM TOI Administration Sodium Chloride 1,000 mls @ 125 mls/hr 04/15/21 18:05 04/19/21 15:14 Normal Saline Iv IV CONT 125 mls/hr .Q8H TOI Administration Ertapenem 1 gm in 50 mls @ 100 mls/hr 04/19/21 13:15 04/19/21 15:14 Invanz 1 Gm/Ns 50 Ml IVPB 100 mls/hr NOON TOI Administration Morphine Sulfate 4 mg 04/15/21 18:02 Morphine Sulfate (*Crx) 4 Mg/Ml Inj IV PUSH Q2H PRN Pain Rated 7-1
[2021-04-19] MEDS: SALINE LOCK FLUSH 10 ML IV PUSH (20:59)
[2021-04-20] VITALS: BP 130/79; PULSE 67; PULSE 70; RESP 16; TEMP 37.1; O2SAT 94
[2021-04-20 04:00] VITALS: BP 132/72; PULSE 65; PULSE 70; RESP 16; TEMP 37.1; O2SAT 95
[2021-04-20] MEDS: SALINE LOCK FLUSH 10 ML IV PUSH ×2 (05:50→13:33)
[2021-04-20 08:00] VITALS: BP 136/74; PULSE 84; RESP 18; TEMP 37.2; O2SAT 97
[2021-04-20] MEDS: THERAPEUTIC MULTIVITAMINS/MINERALS TAB (*BKC) 1 TABLET PO (10:07)
[2021-04-20] MEDS: TAMSULOSIN HCL 0.4 MG CAPSULE PO (10:07)
[2021-04-20] MEDS: FINASTERIDE 5 MG TABLET PO (10:08)
--- NOTE | 2021-04-20 10:12 | PM.IMPN ---
Progress Note: A&P Assessment and Plan (1) Sepsis: Code(s): A41.9 - Sepsis, unspecified organism Status: Acute Assessment and Plan: The patient was septic at presentation with hypotension, elevated white blood cell count with 18,000 and a left shift and pyuria on urinalysis. He was started on IV fluids and IV antibiotics with notable clinical improvement. Urine and blood cultures are growing Klebsiella sensitive to Levaquin and imipenem. Currently blood pressure is stable in the 130/79-132/72 range. Patient was switched remitted to imipenem by ID recommendations. We will consider reinstating his blood pressure medication today his blood pressure rises above 140/90. Continue careful BP monitoring. (2) Bilateral kidney stones: Code(s): N20.0 - Calculus of kidney Status: Acute Assessment and Plan: Urology has been consulted. The patient will keep catheter indwelling until can perform urodynamics. Repeat KUB as an outpatient. (3) Retention of urine, unspecified: Code(s): R33.9 - Retention of urine, unspecified Status: Acute Assessment and Plan: Continue indwelling Nicolas catheter until patient can from warm a row dynamics. Continue finasteride and tamsulosin. (4) Acute kidney injury: Code(s): N17.9 - Acute kidney failure, unspecified Status: Acute Assessment and Plan: Creatinine has been in the 0.7-0.9 range which likely represents his baseline. After urinary retention was lifted, there was vigorous urinary production with close to 8 liters of urinary output overnight. Stop IV fluids. (5) HTN (hypertension): Code(s): I10 - Essential (primary) hypertension Status: Chronic Assessment and Plan: Patient was hypotensive and his amlodipine is on hold at this time. His tamsulocin dose was increased per urology recommendations. Resume blood pressure medication tomorrow if blood pressure rises higher than 140/90. Subjective Date/time seen: 04/20/21 09:12 Review of Systems Review of Systems: All systems reviewed & are unremarkable except as noted in HPI and below Constitutional: Constitutional: Reports as per HPI and Reports no additional constitutional complaints Eyes: Eyes: Reports as per HPI and Reports no additional eye complaints ENT: Reports system reviewed and no additional complaints, except as documented and Reports Normal hearing present Cardiovascular: Cardiovascular: Reports no additional cardiovascular complaints and Denies leg edema Respiratory: Respiratory: Reports no additional respiratory complaints and Reports no additional respiratory complaints Gastrointestinal: Gastrointestinal: Reports as per HPI and Reports no additional gastrointestinal complaints Genitourinary: Genitourinary: Reports no additional male genitourinary complaints Musculoskeletal: Musculoskeletal: Reports no additional musculoskeletal complaints Integumentary/Breasts: Skin/Breast: Reports system reviewed and no additional complaints, except as docu and Reports as per HPI Neurologic: Reports system reviewed and no additional complaints, except as documented, Reports as per HPI and Reports Normal hearing present Psychiatric: Psychiatric: Reports no additional psychiatric complaints and Reports as per HPI Endocrine: Endocrine: Reports no additional endocrine complaints Hematologic/Lymphatic: Hematologic/Lymphatic: Reports no additional hematologic/lymphatic complaints Allergic/Immunologic: Allergic/Immunologic: Reports no additional allergic/immunologic complaints Exam Const: General: cooperative, healthy appearing, comfortable, no acute distress, well developed, alert, awake and Physically active Nutritional Appearance: average body habitus and thin Orientation/consciousness: oriented to person, oriented to place, oriented to time and patient oriented x3 Limitations: no limitations HENMT: Head: normal to inspection, No palpable skull fracture
[2021-04-20] MEDS: ERTAPENEM 1 GM/NS 50 ML 1 GM/50 ML BAG IVPB (13:32)
[2021-04-20 14:00] VITALS: BP 131/77; PULSE 91; RESP 18; TEMP 36.7; O2SAT 97
--- NOTE | 2021-04-20 15:08 | PM.DS ---
DS: Admitting Diagnosis Discharge Date 04/20/2021. Admitting Diagnosis Sepsis secondary to urinary tract infection. DS: Discharge Diagnosis Discharge Diagnosis (1) Sepsis: Code(s): A41.9 - Sepsis, unspecified organism Status: Acute Assessment and Plan: The patient was septic at presentation with hypotension, elevated white blood cell count with 18,000 and a left shift and pyuria on urinalysis. He was started on IV fluids and IV antibiotics with notable clinical improvement. Urine and blood cultures are growing Klebsiella sensitive to Levaquin and imipenem. Currently blood pressure is stable in the 130/79-132/72 range. Patient was switched remitted to imipenem by ID recommendations. We will consider reinstating his blood pressure medication today his blood pressure rises above 140/90. Continue careful BP monitoring. (2) Bilateral kidney stones: Code(s): N20.0 - Calculus of kidney Status: Acute Assessment and Plan: Urology has been consulted. The patient will keep catheter indwelling until can perform urodynamics. Repeat KUB as an outpatient. (3) Retention of urine, unspecified: Code(s): R33.9 - Retention of urine, unspecified Status: Acute Assessment and Plan: Continue indwelling Goodwin catheter until patient can from warm a row dynamics. Continue finasteride and tamsulosin. (4) Acute kidney injury: Code(s): N17.9 - Acute kidney failure, unspecified Status: Acute Assessment and Plan: Creatinine has been in the 0.7-0.9 range which likely represents his baseline. After urinary retention was lifted, there was vigorous urinary production with close to 8 liters of urinary output overnight. Stop IV fluids. (5) HTN (hypertension): Code(s): I10 - Essential (primary) hypertension Status: Chronic Assessment and Plan: Patient was hypotensive and his amlodipine is on hold at this time. His tamsulocin dose was increased per urology recommendations. Resume blood pressure medication tomorrow if blood pressure rises higher than 140/90. DS: Summary Hospital Course Reason for hospitalization: Acute urinary retention and fever Hospital Course: Please refer to admission H& P. Briefly, This is a 70-year-old male patient has a past medical history of having kidney stones with ureter stents. The patient had a procedure performed yesterday per Dr. Reyes. The patient had a cystoscopy left ureteral stent removal and left ureteral scope be with retrograde pyelogram [place] left ureteral stent replaced right ESWL see operative note from 04/14/2021. It was noted that the patient had lithotripsy for 2 stones on the right kidney. No immediate complications were noted. The patient had been taking Bactrim at home. The patient came into the emergency room due to acute urinary retention and fever. The patient stated he was only voiding small amounts. He was also having chills and pain to suprapubic region. No back pain or flank pain. Goodwin catheter was placed in the emergency room that has pink tinged urine. Abdominal x-ray was read as bilateral nephrolithiasis and bilateral internal ureteral stents in expected position performed yesterday. Dr. Treadwell has been consulted. The patient was given IV Tylenol as started on ceftriaxone. His white count was noted to be 18.4. H&H is 11.1 and 33.1 which is his baseline. Lactic level was 4.0 and then 3.6. Glucose 176. Urine was positive for UTI. The patient is being admitted to observation status on the date of service of 04/15/21. Urology was consulted. Patient has failed multiple voiding trials. He is currently on Flomax. Will defer further workup to Dr. Reyes there appears that he may need definitive treatment at some point. Continue with Goodwin for the time being. KUB on 04/14/2021 shows bilateral stones and stents in place.Plan to get another KUB in two weeks to re-evaluate. Plan to keep goodwin in until we are able to do urody
== END 2021-04-20 17:25 | disposition home health service (06) | DRG 872 ==
LOC: ANHED 18:14 → ANHIMU 18:21 → ANH2MED 04-19 13:45 → ANHIMU 04-21 15:17
PROVIDERS: Nurse Practitioner; Admitting Provider Hospitalist; Emergency Provider Emergency Medicine; PCP Internal Medicine; Visit Provider Internal Medicine
DX: A41.89 Other specified sepsis (principal); N13.6 Pyonephrosis; N17.9 Acute kidney failure, unspecified; N20.0 Calculus of kidney; B96.89 Other specified bacterial agents as the cause of diseases classified elsewhere; R33.9 Retention of urine, unspecified; I10 Essential (primary) hypertension
CPT/HCPCS: 36415; 36569; 51701; 80048; 80053; 81001; 82728; 82948; 83540; 83550; 83605; 83735; 84443; 84466; 85025; 87040; 87077; 87086; 87088; 87186; 96361; 96365; 96367; 99285; A9270; C1751; G0378; J0131; J0696; J1335; J1956; J7030; J7040

== ENCOUNTER 2021-04-25 14:28 | Outpatient (CLI) | payer MEDICARE, SELFPAY ==
--- NOTE | ~2021-04-25 | XR_ITS ---
EXAMINATION: XR abdomen/kub 1V DATE: 04/25/2021 14:42 INDICATION: Bilateral renal stones. TECHNIQUE: A supine view of the abdomen on 2 radiographs was obtained. COMPARISON: 04/14/2021 FINDINGS: No interval change in bilateral internal ureteral stents which remain in expected positions with loop s formed of the expected location of the bilateral renal pelvises sees and in the bladder. Also witho ut significant interval change or bilateral renal stones with at least 5 stones in the right kidney a nd 6 stones in the left kidney measuring up to 4-5 mm. There is a cluster of at least 9 additional la rger calcifications in the right upper quadrant, the largest measuring up to 16 mm which project krystian pheral to the margin of the kidney likely representing gallstones. Multiple small calcified granuloma tous the spleen. No calcifications consistent with ureteral stones seen along the course of the urete ral stent. 3. Unchanged phleboliths in the pelvis. Normal bowel gas pattern. IMPRESSION: 1. No significant change in bilateral nephrolithiasis and bilateral intraureteral stents which remain in expected position. 2. Cholelithiasis. Reviewed, dictated and finalized at location A. 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 No significant change in bilateral nephrolithiasis and bilateral intraureter al stents which remain in expected position. 2. Cholelithiasis.
== END 2021-04-25 14:29 | disposition home or self-care (01) ==
PROVIDERS: PCP Internal Medicine; Visit Provider Urology
DX: N20.0 Calculus of kidney (principal); K80.20 Calculus of gallbladder without cholecystitis without obstruction
CPT/HCPCS: 74018

== ENCOUNTER 2021-05-02 11:21 | Outpatient (CLI) | payer MEDICARE, SELFPAY ==
[2021-05-02 12:04] LABS: Prothrombin Time 13.5 Seconds (11.1-14.7)
[2021-05-02 12:05] LABS: Partial Thromboplastin Time 29.9 SECONDS (22.3-36.8)
== END 2021-05-02 11:22 | disposition home or self-care (01) ==
LOC: ANHSURGERY 11:24
PROVIDERS: PCP Internal Medicine; Visit Provider Urology
DX: Z01.812 Encounter for preprocedural laboratory examination (principal); N20.0 Calculus of kidney; Z51.81 Encounter for therapeutic drug level monitoring; Z79.899 Other long term (current) drug therapy
CPT/HCPCS: 36415; 85610; 85730

== ENCOUNTER 2021-05-11 02:36 | Day surgery (SDC) | payer MEDICARE, SELFPAY ==
--- NOTE | 2021-04-28 14:18 | PC.NURSE ---
Report to the Outpatient Waiting Room, entrance under the green pavilion located off [facility], at time _0630 on date _05/12/21 . OR Time: __829 . - You and your visitor will be asked a series of questions to screen for COVID 19 for your protection. - A mask is required within the hospital. - Only one visitor is allowed at this time. Patient visitors will be guided where to wait when not with patient. Preoperative COVID Testing Requirements: No COVID Test needed if: (proof is required; if not received patient will have Rapid Test prior to entry) - Patient has received COVID Vaccine at least 14 days prior to procedure date or - Patient has positive COVID test result within last 90 days of surgery date. COVID Test needed if above criteria is not met If not COVID vaccinated a COVID test must be conducted within 72 hours of surgery and patient is asked to isolate self from time of testing until procedure. You will go to the [facility] for your COVID testing. The [facility] site is located at the corner of [address] [facility]. You will only be called if COVID results are positive and your surgeon may reschedule your elective surgery date. Patients may have clear liquids (water, carbonated beverages, clear teas, apple juice) until 3 hours prior to surgery with a maximum of 20 ounces. - No food from midnight until time of surgery - Infants may have breast milk until 4 hours before surgery, formula 6 hours prior to surgery. - Children will be allowed to drink immediately following surgery. If applicable, please bring a bottle or sippy cup to assist with drinking. Juice, water, soda, and popsicles are readily available. For infants on formula, please bring formula the day of surgery. Pacifiers are allowed. Take the following medications with a SIP of water the morning of surgery: _NONE Medications to discontinue per physician __ALL VITAMINS 3 DAYS PRE OP Date to take last dose__05/08/21 Please no make-up, nail niuean, hairspray, perfume, deodorant, or body powder the day of surgery. No jewelry (including any body piercings) or valuables the day of surgery, leave them at home. Please take a shower or bath the night before, or the morning of, surgery with an antibacterial soap. Wear comfortable, loose fitting clothing. Children are encouraged to wear pajamas. - Jewelry must be removed prior to entering the operating room. Rings and piercings that are not removed may be cut off. - The hospital will not accept responsibility for valuables. - Please leave all valuables, including medications, at home the day of surgery. If you are going home after surgery, a licensed school bus driver/custodian must drive you home. - NO public transportation without another adult. - We recommend that an adult stay with you for 24 hours following discharge. - We also recommend that you do not drive, make important decision, drink alcoholic beverages, or take any drugs that were not prescribed by your health care provider for at least 24 hours after your discharge time. Follow any additional instructions given to you from your surgeon. Telephone instructions given to __PATIENT and asked if any additional questions and then verbalized understanding. Patient advised to call surgeon office or pre surgery nurse liaison [phone] if any additional questions.
[2021-04-28 14:39] VITALS: BMI 25.1
--- NOTE | 2021-05-08 07:08 | PM.IMHP ---
H&P: HPI History of Present Illness Date/Time: 05/08/21 07:08 Patient well known to me with recent problems with intermittent gross hematuria, bilateral renal calculi and urinary retention. He has undergone right ESWL with left ureteroscopy ( diagnostic) recently. Initially he was set up for left ESWL but, because of ongoing urinary retention, we have altered our plan to now include left ureteroscopy with laser lithotripsy and TURP. he is aware of the risk of these procedures including, but not limited to, persistent urinary retention, postoperative hematuria, left perinephric hematoma her injury to the kidney. Chief Complaint: Urinary retention and left kidney stones Review of Systems Cardiovascular: Cardiovascular: Denies chest pain, Denies lightheadedness, Denies palpitations and Denies dyspnea Respiratory: Respiratory: Denies dyspnea Gastrointestinal: Gastrointestinal: Denies diarrhea, Denies nausea and Denies vomiting Genitourinary: Genitourinary: Denies hematuria and Denies dysuria Endocrine: Endocrine: Denies palpitations PMFSH Past Medical History Medical History HTN (hypertension) Medial meniscus tear Right knee pain Vision abnormalities Surgical History Surgical History H/O arthroscopic knee surgery Bilateral knees History of lithotripsy History of ureter stent Family History Family History Father Cerebrovascular accident Malignant neoplasm of prostate Congestive heart failure Mother Diabetes mellitus Parkinson disease Sibling Breast cancer Clotting disorder Coronary artery disease Social History Social History Social History: The patient is and lives with his who is the durable power civil rights attorney for healthcare.. He is retired from working in the [employer]. He has 1 child. Lifelong nonsmoker. Does not use any marijuana alcohol or illicit drugs. Code status full code Smoking status: Never smoker Second hand tobacco smoke exposure: No Alcohol intake: never Substance use: never Substance use type: does not use Spiritual care concerns: No Meds Home Medications and Allergies Home Medications Medication Instructions Recorded Confirmed Type amlodipine 5 mg tablet 5 mg PO QNOON 11/26/19 04/28/21 History multivitamin,[id number] 1 tablet PO DAILY 04/06/21 04/28/21 History tamsulosin [Flomax] 0.4 mg PO HS 04/15/21 04/28/21 History finasteride [Proscar] 5 mg PO QAM #30 tablet 04/19/21 04/28/21 Rx Allergies Allergy/AdvReac Type Severity Reaction Status Date / Time No Known Allergies Allergy Unknown Verified 04/28/21 14:08 Exam Const: General: no acute distress Resp: Effort & Inspection: normal respiratory effort GI: Inspection: non-distended GI Palp: No abdominal tenderness and No Guarding due to palpation present (GI) Auscultation: normal bowel sounds Assessment and Plan Assessment and plan (1) Urinary tract infection: Code(s): N39.0 - Urinary tract infection, site not specified Status: Acute (2) Bilateral kidney stones: Code(s): N20.0 - Calculus of kidney Status: Acute Assessment and Plan: Cystoscopy with left ureteroscopy, laser lithotripsy stone extraction / TURP
--- NOTE | 2021-05-10 14:50 | WPDANESEPPF ---
Anes - Initial Pre Proc Eval Procedure: Operation Date: 05/11/21 12:00 Proposed Procedures p Trans Urethral Resection Prostate, - Manjinder Reyes MD s Cystoscopy, Left Ureteroscopy with Stone Extraction, Possible Left Retrograde Pyelogram, Possible Left Stent Placement, - Manjinder Reyes MD s Possible Holmium Laser Procedure - Manjinder Reyes MD Date/Time: 05/10/21 14:50 Surgeon: Manjinder Reyes MD Pre Op Diagnosis: Acute Urinary Retention, Mahad Kidney Stones Patient Data Age: 70 Gender: M Height: 1.88 m Weight: 88.9 kg Allergies Allergy/AdvReac Type Severity Reaction Status Date / Time No Known Allergies Allergy Unknown Verified 04/28/21 14:08 Home Medications Medication Instructions Recorded Confirmed Type amlodipine 5 mg tablet 5 mg PO QNOON 11/26/19 04/28/21 History multivitamin,[id number] 1 tablet PO DAILY 04/06/21 04/28/21 History tamsulosin [Flomax] 0.4 mg PO HS 04/15/21 04/28/21 History finasteride [Proscar] 5 mg PO QAM #30 tablet 04/19/21 04/28/21 Rx Patient hx anesthesia problems: none Family hx anesthesia problems: none Results Review: All pre-operative results and documents have been reviewed as part of the pre-operative evaluation. [facility] Past Medical History Medical History (Updated 05/10/21 @ 14:51 by Fady Shepherd DO) GERD (gastroesophageal reflux disease) Hiatal hernia HTN (hypertension) Medial meniscus tear Right knee pain Vision abnormalities Surgical History Surgical History H/O arthroscopic knee surgery Bilateral knees History of lithotripsy History of ureter stent Family History Family History Father Cerebrovascular accident Malignant neoplasm of prostate Congestive heart failure Mother Diabetes mellitus Parkinson disease Sibling Breast cancer Clotting disorder Coronary artery disease Social History Social History Social History: The patient is and lives with his who is the durable power commercial real estate attorney for [employer] He is retired from working in the [employer]. He has 1 child. Lifelong nonsmoker. Does not use any marijuana alcohol or illicit drugs. Code status full code Smoking status: Never smoker Second hand tobacco smoke exposure: No Alcohol intake: never Substance use: never Substance use type: does not use Living arrangements: with family Spiritual care concerns: No Anes - Eval Final PreProcedure Day of Procedure 05/10/21 14:50 Patient weight: overweight Heart: regular rate and rhythm Lungs: clear to auscultation and normal air movement Airway: Mallampati scale class II Neurological: alert and oriented Last oral intake: >/= 8 hours ASA classification: III Emergent: no Anesthetic plan: proceed Anesthesia type and monitoring: general LMA and standard monitoring Results Review: All pre-operative results and documents have been reviewed as part of the pre-operative evaluation. Informed Consent: The patient's anesthetic plan and its attendant risks and benefits were discussed with the patient/family/POA. Questions were solicited and answers provided to the satisfaction of the patient/family/POA.
[2021-05-11] VITALS (14 sets, daily range): BP systolic 106–136; BP diastolic 69–85; PULSE 73–104; RESP 9–20; TEMP 36.3–36.9; O2SAT 96–100
--- NOTE | ~2021-05-11 | XR_ITS ---
EXAMINATION: XR retrograde pyelo w/stent LT DATE: 05/11/2021 12:16 INDICATION: Left internal ureteral stent placement TECHNIQUE: Fluoroscopic images from a left internal ureteral stent placement are submitted for review . 63 seconds of fluoroscopy time. 73 fluoroscopic images. FINDINGS: There is a left double-J internal ureteral stent projecting in expected position, with proximal [place] loop at the level of the renal pelvis and distal loop in the pelvis within the bladder lumen. IMPRESSION: 1. Left internal ureteral stent placement. Please refer to real-time procedural findings for detail s. Reviewed, dictated and finalized at location B. LANE MECHANIC APPRENTICE IMPRESSION: 1. Left internal ureteral stent placement. Please refer to real-time procedur al findings for details.
--- NOTE | ~2021-05-11 | XR_ITS ---
EXAMINATION: XR abdomen/kub 1V DATE: 05/11/2021 10:15 INDICATION: Bilateral renal stones for preoperative assessment prior to shockwave lithotripsy. TECHNIQUE: A supine view of the abdomen on 2 radiographs was obtained. COMPARISON: 04/25/2021 FINDINGS: Multiple calcified gallstones. One of the calcifications appears significantly more dense and could r epresent a hepatic granuloma with several additional calcified splenic granulomata at the lateral lef t upper quadrant. Unchanged bilateral internal ureteral stents which remain in expected position with loops formed over the bladder and expected location of the bilateral renal pelvises sees. No interva l change in a 3 mm stone at the upper pole of the right kidney and 4 mm stone at the lower pole of th e right kidney. There is a cluster of at least 5 stones at the upper pole of the left kidney. 2 mm an d 5 lumbar stones at the lower pole of the left kidney. There appear to be a couple additional 2-3 mm stones at the left renal pelvis along side the proximal loop of the left internal ureteral stent. No stones evident along the course of the bilateral ureters. A few unchanged phleboliths in the pelvis. Normal bowel gas pattern. Lung bases are clear. Heart size is normal. IMPRESSION: 1. Bilateral nephrolithiasis as detailed above with bilateral internal ureteral stents in expected po sition. 2. Cholelithiasis. Reviewed, dictated and finalized at location A. GENCY MEDICAL SERVICES COORDINATOR IMPRESSION: 1. Bilateral nephrolithiasis as detailed above with bilateral internal ureteral stents in expected position. 2. Cholelithiasis.
--- NOTE | 2021-05-11 06:31 | WPDHPUPDATE1 ---
History and Physical Update Update Date/Time: 05/11/21 06:31 History and Physical has been reviewed, including an updated exam of the patient. There are NO changes in the patient's condition. Risks, benefits, and alternatives have been discussed and questions answered. Patient agrees to proceed with procedure.
[2021-05-11] MEDS: LACTATED RINGERS 1,000 ML 30 ML IV CONT ×2 (11:10→12:50)
[2021-05-11] MEDS: LIDOCAINE HCL 2% GEL UROJET 10 ML PKG MUCOUS MEM (11:58)
--- NOTE | 2021-05-11 12:56 | W.PM.PROC2 ---
Procedure Note - Detailed Date of Procedure 05/11/21 Pre-op Diagnosis Acute Urinary Retention, Mahad Kidney Stones Post-op Diagnosis same Procedure Performed Cystoscopy, right ureteral stent removal, left ureteral stent removal and replacement, left ureteroscopy with laser lithotripsy and stone extraction, TURP Surgeon Manjinder Reyes MD Anesthesia general Description of Procedure The patient was brought to the operative suite where he is prepped and draped in a routine sterile fashion while in the dorsal lithotomy position after the uneventful induction of a general LMA anesthetic. A 21F rigid cystoscope was placed in the bladder. There are no urethral strictures. His prostatic urethra measures, approximately, 2.5cm with moderate median lobe enlargement. The bladder mucosa was endoscopically normal without hyperemia or neoplasm. There was a single, orthotopic ureteral orifice bilaterally, each with an indwelling stent. The right ureteral stent was removed with ease. . A 0.035 glidewire was advanced into the left renal pelvis under fluoroscopy. The distal ureter was dilated with an 8F/10F ureteral dilator and a 12F/14F access sheath is placed. . Ureteroscopy was undertaken with a7.5F flexible ureteroscope and a left retrograde pyelogram is obtained to outline the entire collecting system. During ureteroscopy I fractured the stone into smaller pieces using a 273 micron Holmium laser fiber with the Holmium laser. I was able to then extract the largest stone pieces using a 1.9F Nitinol, disposable stone basket. I replaced a 4.8F left ureteral stent with the proximal coil of the stent was confirmed to be in the renal pelvis and the distal coil in the bladder. A 27 [place] resectoscope sheath was then placed into his bladder. He had no urethral strictures. These orifices were identified and preserved throughout the remainder of the procedure. Attention was first turned to resection of the median lobe. This resection was undertaken from the bladder neck to the verumontanum and carried out until the transverse fibers of the bladder neck were identified. The left lateral lobe was then resected starting at the 6 o'clock position, working counter clockwise to the 12 o'clock position. Again, resection was carried out from the bladder neck to the verumontanum until the capsular fibers of the prostate were identified. The right lateral lobe was resected in a similar fashion starting at the 6 o'clock position working clockwise to the 12 o'clock position and carried out until the capsular fibers of the prostate were identified. Apical tissue was then circumferentially resected. All chips were evacuated from the bladder using an [employer]. evacuator. Hemostasis was obtained with electric cautery. The ureteral orifices were again inspected and found to be without injury. Estimated blood loss throughout this procedure was 50cc. The patient was taken to recovery room having tolerated this well. Estimated Blood Loss 50 Drains Yes Packing No Pathology yes Complications No immediate complications Condition stable Disposition PACU
--- NOTE | 2021-05-11 13:23 | SUR.PHASEI ---
1322: Simple mask removed.
--- NOTE | 2021-05-11 13:58 | SUR.PHASEI ---
Patient met criteria for the floor but there are no beds available at this time. Patient is going to Outpatient room 15 so his can sit with him for the time being.
[2021-05-11] MEDS: amLODIPine BESYLATE 5 MG TABLET PO (17:13)
[2021-05-12 03:12] VITALS: BP 102/70; PULSE 67; RESP 20; TEMP 36.8; O2SAT 98
[2021-05-12 05:15] LABS: Hematocrit 30.2 % (42.0-52.0)
[2021-05-12 05:30] LABS: Anion Gap 7 mmol/L (8-16); Blood Urea Nitrogen 15 mg/dL (9-20); Calcium 8.8 mg/dL (8.4-10.2); Carbon Dioxide 26 mmol/L (22-30); Chloride 105 mmol/L (98-107); Estimated CRCL calculation 113 ml/min; Estimated Glomerular Filt Rate > 60; Glucose 141 mg/dL (65-110); Potassium 4.1 mmol/L (3.4-5.0); Sodium 138 mmol/L (137-145)
--- NOTE | 2021-05-12 07:43 | WPDUROPN2 ---
Progress Note: A&P Assessment and Plan (1) Bilateral kidney stones: Code(s): N20.0 - Calculus of kidney Status: Acute (2) Retention of urine, unspecified: Code(s): R33.9 - Retention of urine, unspecified Status: Acute Assessment and Plan: Stop CBI now. Voiding trial later this morning if urine remains clear. Subjective Subjective Date/Time Seen: 05/12/21 07:43 Comfortable tolerating diet. Urine clear on slow CBI Review of Systems Cardiovascular: Cardiovascular: Denies chest pain, Denies lightheadedness, Denies palpitations and Denies dyspnea Respiratory: Respiratory: Denies dyspnea Gastrointestinal: Gastrointestinal: Denies diarrhea, Denies nausea and Denies vomiting Genitourinary: Genitourinary: Denies hematuria and Denies dysuria Endocrine: Endocrine: Denies palpitations Exam Const: General: no acute distress Resp: Effort & Inspection: normal respiratory effort GI: Inspection: non-distended GI Palp: No abdominal tenderness and No Guarding due to palpation present (GI) Auscultation: normal bowel sounds Objective Data Vital Signs Vital Signs: Vital Signs - 24 hr 05/11/21 10:45 05/11/21 12:50 05/11/21 13:05 Temperature 98.4 F 97.4 F L Pulse Rate 94 83 80 Respiratory Rate 16 9 L 14 Blood Pressure 136/82 117/84 114/84 Pulse Oximetry 98 100 100 05/11/21 13:20 05/11/21 13:35 05/11/21 13:50 Temperature Pulse Rate 81 76 96 Respiratory Rate 15 13 14 Blood Pressure 122/85 125/83 128/85 Pulse Oximetry 99 96 97 05/11/21 14:20 05/11/21 14:50 05/11/21 15:15 Temperature Pulse Rate 86 89 86 Respiratory Rate 20 20 20 Blood Pressure 117/69 106/71 120/78 Pulse Oximetry 05/11/21 15:45 05/11/21 16:00 05/11/21 16:30 Temperature 98.0 F 98.0 F 98.0 F Pulse Rate 75 77 73 Respiratory Rate 20 20 20 Blood Pressure 120/69 122/75 118/70 Pulse Oximetry 100 99 99 05/11/21 17:30 05/11/21 21:23 05/12/21 03:12 Temperature 98.0 F 98.1 F 98.3 F Pulse Rate 85 104 H 67 Respiratory Rate 20 20 20 Blood Pressure 116/69 108/74 102/70 Pulse Oximetry 98 98 98 Intake/Output Intake/Output: Intake & Output 05/09/21 05/10/21 05/11/21 05/12/21 23:59 23:59 23:59 23:59 Intake Total 880 190 Output Total 4750 900 Balance -3870 -710 Meds/Results Medications: Active Medications Generic Name Dose Route Start Last Admin Trade Name Freq PRN Reason Stop Dose Admin Hydrocodone Bitart/Acetaminophen 1 tab 05/11/21 15:24 Hydrocodone/Acetaminophen (*Crx) 5-325 Mg Tablet PO Q4H PRN Pain Rated 1-6 Amlodipine Besylate 5 mg 05/11/21 16:10 05/11/21 17:13 Amlodipine Besylate 5 Mg Tablet PO 5 mg 1500 TOI Administration Docusate Sodium 100 mg 05/11/21 17:00 05/11/21 17:13 Docusate Sodium 100 Mg Capsule PO Not Given BID TOI Hyoscyamine 0.125 mg 05/11/21 15:24 Hyoscyamine Sulfate 0.125 Mg Tablet SUBLINGUAL Q6H PRN Bladder Spasm Morphine Sulfate 2 mg 05/11/21 15:24 Morphine Sulfate (*Crx) 2 Mg/Ml Inj IV PUSH Q2H PRN Pain Rated 7-10 Naloxone HCl 0.1 mg 05/11/21 15:24 Naloxone Hcl 0.4 Mg/Ml Vial IV PUSH Q2M PRN Opiate Reversal Ondansetron HCl 4 mg 05/11/21 15:24 Ondansetron Inj 4 Mg/2 Ml Vial IV PUSH Q12H PRN Nausea And Vomiting Radiology Results: ITS Impressions Abdomen X-Ray 05/11/21 10:32 IMPRESSION: 1. Bilateral nephrolithiasis as detailed above with bilateral internal ureteral stents in expected position. 2. Cholelithiasis. Retrograde Pyelogram 05/11/21 13:53 IMPRESSION: 1. Left internal ureteral stent placement. Please refer to real-time procedural findings for details. Labs Labs: Laboratory Results - last 24 hr 05/12/21 05/12/21 05:00 05:00 Hgb 10.0 L Hct 30.2 L Sodium 138 Potassium 4.1 Chloride 105 Carbon Dioxide 26 Anion Gap 7 L BUN 15 Creatinine 0.60 L Estim Creat Clear Calc 113 E
[2021-05-12] MEDS: DOCUSATE SODIUM 100 MG CAPSULE PO (09:16)
[2021-05-12] MEDS: amLODIPine BESYLATE 5 MG TABLET PO (14:17)
[2021-05-12 14:19] VITALS: BP 131/89; PULSE 79; RESP 20; TEMP 36.3; O2SAT 99
--- NOTE | 2021-05-12 18:13 | PC.NURSE ---
Patient to discharge with Nicolas catheter and midline access.
== END 2021-05-12 18:07 | disposition home health service (06) ==
LOC: ANHSURGERY 10:00 → ANH2MED 15:26
PROVIDERS: PCP Internal Medicine; Visit Provider Urology
PROC: 0VT08ZZ Resection of Prostate, Via Natural or Artificial Opening Endoscopic (ICD-10-PCS; CPT 52601; principal; 2021-05-11 12:00)
PROC: (CPT 52352; 2021-05-11 12:00)
PROC: (CPT 52356; 2021-05-11 12:00)
DX: N40.1 Benign prostatic hyperplasia with lower urinary tract symptoms (principal); R33.8 Other retention of urine; N20.2 Calculus of kidney with calculus of ureter; N39.0 Urinary tract infection, site not specified; K21.9 Gastro-esophageal reflux disease without esophagitis; I10 Essential (primary) hypertension
CPT/HCPCS: 52356; 52601; 36415; 74018; 74420; 80048; 82365; 85014; 85018; 85610; 85730; 88300; 88305; A9270; C1758; C1769; C1894; C2617; J1100; J2405; J2704; J7120; Q9966

== ENCOUNTER 2022-01-15 10:22 | Outpatient (CLI) | payer MEDICARE, SELFPAY ==
--- NOTE | ~2022-01-15 | XR_ITS ---
EXAM: XR abdomen/kub 1V DATE: 01/15/2022 10:38 HISTORY: NEW ONSET RT SIDE PAIN, HEMATURIA, B/L KID STONES . COMPARISON: 03/11/2021. FINDINGS: Clear lung bases. Normal bowel gas pattern. No organomegaly. Cholelithiasis. Splenic and p ossibly liver granulomas. Interval bilateral ureteral stent removal. Multiple bilateral renal calculi , appear grossly stable. Stable pelvic phleboliths. Regional bones and soft tissues normal for age. IMPRESSION: Bilateral nephrolithiasis. No definite calcified lesions along the expected course of the right ureter. Reviewed, dictated and finalized at location K.
== END 2022-01-15 10:23 | disposition home or self-care (01) ==
PROVIDERS: PCP Internal Medicine; Visit Provider Urology
DX: N20.0 Calculus of kidney (principal)
CPT/HCPCS: 74018

== ENCOUNTER 2022-01-29 13:01 | Outpatient (CLI) | payer MEDICARE, SELFPAY ==
--- NOTE | ~2022-01-29 | CT_ITS ---
EXAMINATION: CT abdomen pelvis wo/w con DATE: 01/29/2022 13:56 INDICATION: Gross hematuria. TECHNIQUE: Computed tomography (CT) of the abdomen and pelvis was performed without and with intraven ous contrast using a total of 130 mL Omnipaque-350 intravenous contrast with a double-bolus technique for simultaneous opacification of the renal parenchyma and renal collecting system. Automated exposu re control and iterative reconstruction technique were employed. The dose-length product was 1378.63 mGy-cm. COMPARISON: None FINDINGS: The visualized portions of the lung bases demonstrate mild atelectasis. There is a 6 mm nodule in rig ht lower lobe. No pleural effusion. The heart size is normal. There are coronary artery calcification s. No pericardial effusion. There is a small sliding hiatal hernia. Calcifications in the liver and s pleen are consistent with old granulomatous disease. There are gallstones in the gallbladder, which i s normal in size. The pancreas and adrenal glands are normal. There are cysts in the kidneys measurin g up to 17 mm on the right. There are approximately 8 stones in right kidney measuring up to 8 mm. Th ere are greater than 10 stones in left kidney measuring up to 7 mm. Right ureter is suboptimally opac ified distally, but is normal. Left ureter is well opacified and is normal. The bladder is normal. Th e prostate is mildly enlarged. There are no dilated loops of bowel. The appendix is normal. There is fat stranding at the root of the small bowel mesentery, which may be edema or inflammation (mesenteri c panniculitis). There is severe lumbar spondylosis. There is mild chronic anterior wedging of multip le lower thoracic vertebral bodies. IMPRESSION: 1. Bilateral nonobstructing kidney stones. 2. 6 mm pulmonary nodule, probably benign. Consider noncontrast chest CT in 6-12 months. Reviewed, dictated and finalized at location A. IMPRESSION: 1. Bilateral nonobstructing kidney stones. 2. 6 mm pulmonary nodule, probably benign. Consider noncontrast chest CT in 6-1 2 months.
[2022-01-29 13:38] LABS: Estimated Glomerular Filt Rate > 60
== END 2022-01-29 13:02 | disposition home or self-care (01) ==
PROVIDERS: PCP Internal Medicine; Visit Provider Urology
DX: R31.0 Gross hematuria (principal); N20.0 Calculus of kidney; R91.1 Solitary pulmonary nodule
CPT/HCPCS: 74178; Q9967

== ENCOUNTER 2024-03-17 09:52 | Outpatient (CLI) | payer MEDICARE, SELFPAY ==
--- NOTE | ~2024-03-17 | XR_ITS ---
EXAMINATION: XR abdomen/kub 1V DATE: 03/17/2024 10:15 INDICATION: Bilateral kidney stones. TECHNIQUE: A supine view of the abdomen on 2 radiographs was obtained. COMPARISON: Abdomen radiographs 01/15/2022, CT abdomen and pelvis 01/29/2022 FINDINGS: There are no dilated loops of bowel. There is a large volume of stool in the colon. There a re gallstones in the gallbladder. There are phleboliths in the pelvis. There are two 4 mm stones in r ight kidney. There are approximately 4 stones in left kidney measuring up to 9 mm. IMPRESSION: 1. Bilateral kidney stones. 2. Cholelithiasis. Reviewed, dictated and finalized at location A.
== END 2024-03-17 09:53 | disposition home or self-care (01) ==
LOC: ANHIMG 09:55
PROVIDERS: PCP Physician Assistant Medical; Visit Provider Urology
DX: N20.0 Calculus of kidney (principal); K80.20 Calculus of gallbladder without cholecystitis without obstruction
CPT/HCPCS: 74018

== ENCOUNTER 2024-04-03 08:21 | Outpatient (CLI) | payer MEDICARE, SELFPAY ==
--- NOTE | 2024-04-03 08:24 | ECG_ITS ---
Test Date: 2024-04-03 08:55:21 Measurements Intervals [place] Rate: 62 P: 39 AR: 141 QRS: 38 QRSD: 106 T: 39 QT: 418 QTc: 425 Interpretive Statements SINUS RHYTHM No previous ECG available for comparison Electronically Signed On 04-03-2024 15:36:05 CDT by Stephanie Tamez M.D.
[2024-04-03 10:16] LABS: Prothrombin Time 13.3 Seconds (11.1-14.7)
== END 2024-04-03 08:22 | disposition home or self-care (01) ==
PROVIDERS: PCP Physician Assistant Medical; Visit Provider Urology
DX: Z01.818 Encounter for other preprocedural examination (principal); N20.0 Calculus of kidney; I10 Essential (primary) hypertension
CPT/HCPCS: 36415; 85610; 85730; 87086; 87181; 93005

== ENCOUNTER 2024-04-10 03:02 | Day surgery (SDC) | payer MEDICARE, SELFPAY ==
--- NOTE | 2024-04-02 12:09 | PC.NURSE ---
Report to the Outpatient Waiting Room, entrance under the green pavilion located off [facility], at time _11 AM on date 04/10/24 . Planned Procedure Time: 1 :00PM .? Time changes happen often and if your time is changed the preop area will call you the afternoon before. - You and your visitor will be asked to self-screen and do not enter if you have any COVID symptoms. Please call surgeon if you need to reschedule. - A mask is optional within the hospital at this time. Patients may have clear liquids (water, carbonated beverages, clear teas, apple juice) until 3 hours prior to surgery( 10 AM) with a maximum of 20 ounces. - No food from midnight until time of surgery and no smoking - Infants may have breast milk until 4 hours before surgery, formula 6 hours prior to surgery. - Children will be allowed to drink immediately following surgery.? If applicable, please bring a bottle or sippy cup to assist with drinking. Juice, water, soda, and popsicles are readily available.? For infants on formula, please bring formula the day of surgery.? Pacifiers are allowed. Take only the following medications with a SIP of water on the morning of surgery: __METOPROLOL DO NOT STOP ANY OF YOUR OTHER PRESCRIPTION MEDICATIONS PRIOR TO SURGERY EXCEPT THE FOLLOWING Medications to discontinue per physician ___PT STATES HOLD ASPIRIN AND ALL VITAMINS/SUPPLEMENTS 7 DAYS PRE OP PER DR SUMMERS Date to take last dose__04/02/24 Please no make-up, nail dominican, hairspray, perfume, deodorant, or body powder the day of surgery.? No jewelry (including any body piercings) or valuables the day of surgery, leave them at home.? Please take a shower or bath the night before, or the morning of, surgery with an antibacterial soap.? Wear comfortable, loose fitting clothing.? Children are encouraged to wear pajamas. - Jewelry must be removed prior to entering the operating room.? Rings and piercings that are not removed may be cut off. - The hospital will not accept responsibility for valuables.? - Please leave all valuables, including medications, at home the day of surgery. If you are going home after surgery, a licensed regional company flatbed truck driver must drive you home.? - NO public transportation without another adult if you receive anesthesia. - We recommend that an adult stay with you for 24 hours following discharge. - We also recommend that you do not drive, make important decision, drink alcoholic beverages, or take any drugs that were not prescribed by your health care provider for at least 24 hours after your discharge time. For Pediatric surgeries, we recommend two adults accompany the child home. Follow any additional instructions given to you from your surgeon. Telephone instructions given to ___PATIENT and asked if any additional questions and then verbalized understanding. Patient advised to call surgeon office or pre surgery nurse liaison [phone] if any additional questions.
[2024-04-02 12:18] VITALS: BMI 26.4
[2024-04-10] VITALS (9 sets, daily range): BP systolic 121–157; BP diastolic 77–96; PULSE 54–76; RESP 12–16; TEMP 36.3–36.6; O2SAT 98–100; BMI 27.0
--- NOTE | ~2024-04-10 | XR_ITS ---
EXAMINATION: XR abdomen/kub 1V DATE: 04/10/2024 11:16 INDICATION: Kidney stone. TECHNIQUE: A supine view of the abdomen on 2 radiographs was obtained. COMPARISON: CT abdomen and pelvis 01/29/2022, abdomen radiographs 03/17/2024 FINDINGS: There is a large volume of stool in the colon. There are approximately 4 stones in left kid hima measuring up to 9 mm. There is a 6 mm stone right kidney. There are gallstones in the gallbladder . There are phleboliths in the pelvis. IMPRESSION: 1. Bilateral kidney stones. 2. Cholelithiasis. Reviewed, dictated and finalized at location B.
--- NOTE | 2024-04-10 06:34 | WPDHPUPDATE1 ---
History and Physical Update Update Date/Time: 04/10/24 06:34 History and Physical has been reviewed, including an updated exam of the patient. There are NO changes in the patient's condition. Risks, benefits, and alternatives have been discussed and questions answered. Patient agrees to proceed with procedure.
[2024-04-10] MEDS: LACTATED RINGERS 1,000 ML 30 ML IV CONT (11:40)
--- NOTE | 2024-04-10 11:59 | WPDANESEPPF ---
Anes - Initial Pre Proc Eval Procedure: Operation Date: 04/10/24 13:00 Proposed Procedures p Left Extracorporeal Shock Wave Lithotripsy - Manjinder Reyes MD Date/Time: 04/10/24 11:59 Surgeon: Manjinder Reyes MD Pre Op Diagnosis: Left Kidney Stone, Gross Hematuria, Lt Flank Pain Patient Data Age: 73 Gender: M Height: 1.85 m Weight: 90.75 kg Allergies Allergy/AdvReac Type Severity Reaction Status Date / Time No Known Allergies Allergy Unknown Verified 04/02/24 12:00 Home Medications Medication Instructions Recorded Confirmed Type multivitamin,fb-tpth-[id number] 1 tablet PO DAILY 04/06/21 04/02/24 History aspirin 81 mg tablet,delayed 81 mg PO DAILY 10/18/22 04/02/24 History release (Adult Low Dose Aspirin) metoprolol succinate 50 mg 50 mg PO DAILY 10/18/22 04/02/24 History tablet,extended release 24 hr rosuvastatin 10 mg tablet (Crestor) 10 mg PO DAILY 10/18/22 04/02/24 History Patient hx anesthesia problems: none Family hx anesthesia problems: none Results Review: All pre-operative results and documents have been reviewed as part of the pre-operative evaluation. [facility] Past Medical History Medical History Ascending aortic aneurysm 4.2 x 4.1 cm Atherosclerosis of coronary artery Chondromalacia patellae, right knee Dyslipidemia GERD (gastroesophageal reflux disease) Hiatal hernia HTN (hypertension) Pulmonary nodule RLL Ureterolithiasis Vision abnormalities Surgical History Surgical History H/O arthroscopic knee surgery Bilateral knees for meniscal tear, right knee 2014, left knee 2019 History of lithotripsy History of ureter stent Family History Family History Father Cerebrovascular accident Malignant neoplasm of prostate Congestive heart failure Mother Diabetes mellitus Parkinson disease Sibling Breast cancer Clotting disorder Coronary artery disease Social History Social History Social History: The patient is and lives with his who is the durable power trust and estates attorney for healthcare.. He is retired from working in the [employer]. He has 1 child. Lifelong nonsmoker. Does not use any marijuana alcohol or illicit drugs. Code status full code Smoking status: Never smoker Second hand tobacco smoke exposure: No Alcohol intake: never Substance use: never Substance use type: does not use Lack of Transportation: No Lack of Food: Never True Current Housing: I Have Housing Concerned About Future Housing: No Difficulty Paying Gas/Electric Bills: No Difficulty Paying for Meds: No Currently Unemployed: No Difficulty w/ Childcare or Family Care: No Living arrangements: with family Occupation/Education: retired Gender identity (if verbalized by the patient): Male Spiritual care concerns: No Anes - Eval Final PreProcedure Day of Procedure 04/10/24 11:59 Patient weight: overweight Heart: regular rate and rhythm Lungs: clear to auscultation Airway: Mallampati scale class II Neurological: alert and oriented Last oral intake: >/= 8 hours ASA classification: III Emergent: no Anesthetic plan: proceed Anesthesia type and monitoring: general LMA and standard monitoring Results Review: All pre-operative results and documents have been reviewed as part of the pre-operative evaluation. Informed Consent: The patient's anesthetic plan and its attendant risks and benefits were discussed with the patient/family/POA. Questions were solicited and answers provided to the satisfaction of the patient/family/POA.
[2024-04-10] MEDS: ceFAZolin 2 GM/D5W 50 ML 2 GM/50 ML BAG IVPB (12:28)
--- NOTE | 2024-04-10 12:38 | W.PM.PROC2 ---
Procedure Note - Detailed Date of Procedure 04/10/24 Pre-op Diagnosis Left Kidney Stones Post-op Diagnosis Same Procedure Performed Left ESWL Surgeon Manjinder Reyes MD Anesthesia General Description of Procedure The patient was brought to the operative suite where he was placed in the supine position on the Dornier lithotripsy table. split shocks on the Lithotripter today between two 5-6 mm stones in his left kidney, 1 in the upper pole and 1 in the lower poles. A total of 2500 shocks were delivered at a power setting of 4. There appeared to be good fragmentation of the stone. The patient tolerated the procedure well and was taken to the recovery room in good condition. Drains No Packing No Pathology None sent Complications No immediate complications Condition Stable
== END 2024-04-10 14:52 | disposition home or self-care (01) ==
PROVIDERS: PCP Physician Assistant Medical; Visit Provider Urology
PROC: (CPT 50590; principal; 2024-04-10 13:00)
DX: N20.0 Calculus of kidney (principal); N40.0 Benign prostatic hyperplasia without lower urinary tract symptoms; I10 Essential (primary) hypertension; E78.5 Hyperlipidemia, unspecified; K21.9 Gastro-esophageal reflux disease without esophagitis; I25.10 Atherosclerotic heart disease of native coronary artery without angina pectoris; Z79.82 Long term (current) use of aspirin; Z98.890 Other specified postprocedural states; Z96.0 Presence of urogenital implants; Z86.79 Personal history of other diseases of the circulatory system; Z80.3 Family history of malignant neoplasm of breast; Z80.42 Family history of malignant neoplasm of prostate; Z82.49 Family history of ischemic heart disease and other diseases of the circulatory system
CPT/HCPCS: 50590; 74018; J0690; J1100; J1596; J2003; J2405; J2704; J3010; J7120

== ENCOUNTER 2024-04-28 10:39 | Outpatient (CLI) | payer MEDICARE, SELFPAY ==
--- NOTE | ~2024-04-28 | XR_ITS ---
XR abdomen/kub 1V Ordering provider: Manjinder Reyes MD History: . N20.0 - left side litho 04/10/24, f/u exam . Comparison: April 10, 2024 FINDINGS: BOWEL: Fecal material is seen in the colon. Nonobstructive bowel gas pattern. ORGANOMEGALY: None. SIGNIFICANT PATHOLOGIC CALCIFICATIONS: Bilateral kidney stones. Highly suggestive granulomas in the liver or gallbladder stones. OTHER: Lucency is seen in the area of the right hemidiaphragm which may be technical but air under th e diaphragm cannot be excluded. Bilateral sacroiliacs. IMPRESSION: Lucency in the area of the right hemidiaphragm. Chest x-ray for confirmation is advised to exclude ai r under the diaphragm. Bilateral kidney stones. Highly suggestive cholelithiasis. Ultrasound evaluation advised. Physician: Manjinder Reyes MD Was notified with the result of the patient at 11:56 AM on April 28, 2024. Reviewed, dictated and finalized at location A. Y ATTENDANT IMPRESSION: Lucency in the area of the right hemidiaphragm. Chest x-ray for confirmation is advised to exclude air under the diaphragm. Bilateral kidney stones. Highly suggestive cholelithiasis. Ultrasound evaluation advised. Physician: Manjinder Reyes MD Was notified with the result of the patient at 11:56 AM on April 28, 2024.
--- NOTE | ~2024-04-28 | XR_ITS ---
CHEST RADIOGRAPH, PA AND LATERAL CLINICAL HISTORY: r/o free air possibly seen on KUB today . COMPARISON: Reference is made to a plain film of the abdomen performed earlier on the same day TECHNIQUE: PA and lateral views of the chest. FINDINGS The cardiomediastinal silhouette is unremarkable. The lungs are clear. No extraluminal air is appreciated on upright imaging. Visualized osseous structures and soft tissues are unremarkable. IMPRESSION: No focal infiltrate or effusion. Reviewed, dictated and finalized at location A. UNITY DEVELOPMENT PLANNER
== END 2024-04-28 10:40 | disposition home or self-care (01) ==
PROVIDERS: PCP Physician Assistant Medical; Visit Provider Urology
DX: N20.0 Calculus of kidney (principal); R31.0 Gross hematuria
CPT/HCPCS: 71046; 74018

== ENCOUNTER 2024-10-26 10:56 | Outpatient (CLI) | payer MEDICARE, SELFPAY ==
--- NOTE | ~2024-10-26 | XR_ITS ---
EXAM: XR abdomen/kub 1V DATE: 10/26/2024 11:28 HISTORY: BILATERAL KIDNEY STONES . COMPARISON: 04/28/2024. FINDINGS: Right basilar scar/atelectasis. Normal bowel gas pattern. No organomegaly. Stable bilatera l renal calcifications. Right upper quadrant calcifications, likely cholelithiasis. Stable calcificat ion in projecting over the GE junction. Pelvic phleboliths. Multilevel degenerative disc disease in t he spine. Mild bilateral hip osteoarthritis. IMPRESSION: Stable bilateral nephrolithiasis. Reviewed, dictated and finalized at location K.
--- OUTSIDE RECORDS SUMMARY | 2024-10-26 11:32 | XMS_ITS | Encounter Summary ---
Author Organization [facility] Address [address] [place] [address] Care Team Providers Care Cone Machine Feeder Name Role Phone Jacques Soni MD Primary Care Provider [phone] Encounter Details Date Type Department Care Team (Late st Contact Info) Description 11/02/[address] [facility] DermPath Lab [address] [place] [address] Porter Bacon MD [address] [place] [address] Social History Tobacco Use Types Packs/Day Years Used Date Smoking Tobacco: Never Assessed Sex and Gender Information Value Date Recorded Sex Assigned at Not on file Legal Sex Male 4:03 PM CDT Gender Identity Not on file Sexual Orientation Not on file documented as of this encounter Plan of Treatment Not on file documented as of this encounter Procedures Procedure Name Priority Date/Time Associated Diagnosis Comments DERMATOPATHOLOGY Routine 10/31/2020 3:33 AM CDT documented in this encounter Results * DERMATOPATHOLOGY (10/31/2020 3:33 AM CDT) Case Report Dermatopathology Report Case: [id number] Authorizing Provider: Porter Bacon MD Collected: 10/31/2020 03:33 AM Ordering Location: [facility] Derm[facility] Lab Received: 11/02/2020 07:37 AM Pathologist: Segundo Goff MD Specimen: Skin, right upper abd 4:04 PM CDT DERMATOPATHOLOGY LABORATORY Final Diagnosis Specimen A. SKIN, right upper abd: NEUROFIBROMA (D36.10) 4:04 PM CDT DERMATOPATHOLOGY LABORATORY at 1604 CDT Clinical History Nevus vs NF. Path # [id number]. 4:04 PM CDT DERMATOPATHOLOGY LABORATORY Gross Description Specimen A: Received is one formalin filled container labeled with the patient's name and designated right upper abd. The specimen consists of a shave biopsy measuring [id number]. Jar 0. 4:04 PM CDT DERMATOPATHOLOGY LABORATORY Microscopic Description Specimen A. SKIN, right upper abd: Sections show a proliferation of spindled and S-shaped cells within the dermis. The stromal collagen is delicate and pale. 4:04 PM CDT DERMATOPATHOLOGY LABORATORY Disclaimer An external and internal positive and negative controls are appropriate for the histochemical, immunohistochemical and immunofluorescence stain(s) in this case (if any), except where stated explicitly. The performance characteristics of the stain(s) cited in this report were developed and its performance characteristic determined by the Dermatopathology Laboratory at [facility], directed by Dr. Maureen Goff. These tests need not be, and therefore are not, approved by the [place] Food and Drug Administration. The tests are used for clinical purposes. Billing Codes Specimen Charges Stain Charges 25753 1 4:04 PM CDT DERMATOPATHOLOGY LABORATORY Embedded Images 4:04 PM CDT DERMATOPATHOLOGY LABORATORY Pathology/Cytolo gy TISSUE SPECIMEN FROM SKIN / Unknown 10/31/2020 3:33 AM CDT 11/02/2020 7:37 AM CDT us Porter Bacon MD LAB - PATHOLOGY/CYTOLOGY ORDER HERRERA Final Result DERMATOPATHOLOGY LABORATORY [facility] - Department of Dermatology [address], [address] [phone] documented in this encounter Visit Diagnoses Not on filedocumented in this encounter Care Teams Cone Machine Feeder Relationship Specialty Start Date End Date Jacques Soni MD [address] [place] [address] PCP - General 04/05/21 documented as of this encounter
--- OUTSIDE RECORDS SUMMARY | 2024-10-26 11:32 | XMS_ITS | Clinical Summary ---
Author Organization [facility] Address [facility] [place] [address] Care Team Providers Care Complaints Coordinator Name Role Phone Justina Davis Primary Care Provider [phone] Allergies No known active allergies Medications omeprazole 10 MG capsule Take 1 capsule (10 mg total) by mouth daily as needed. Active amlodipine 5 MG tablet Take 1 tablet (5 mg total) by mouth daily. Active Sod Picosulfate-Mag Ox-Cit Acd (CLENPIQ) 10-3.5-12 MG-GM -GM/160ML SolutionIndicat ions:Screening for colon cancer,Hx of colonic polyp Take 1 Bottle by mouth 2 (two) times daily. Take as directed by GI provider 320 mL 06/15/2022 Active Active Problems Problem Noted Date Diagnosed Date Screening for colon cancer 06/15/2022 Overview (06/15/2022): Added automatically from request for surgery [id number] Hx of colonic polyp 06/15/2022 Overview (06/15/2022): Added automatically from request for surgery [id number] Hiatal hernia 06/15/2022 Overview (06/15/2022): Added automatically from request for surgery [id number] Encounters Date Type Department Care Team Description 10/22/2024 9:40 AM CDT Laboratory Only [facility] [address] [place] [address] Roberto Jaramillo MD 10/22/2024 Travel from Last 3 Months Family History Medical History Relation Comments Stroke Father Parkinson's Disease Mother Relation Status Comments Father Mother Social History Tobacco Use Types Packs/Day Years Used Date Smoking Tobacco: Never Smokeless Tobacco: Never Tobacco Cessation:Counseling Given: Not Answered Alcohol Use Standard Drinks/Week Comments Yes 0 (1 standard drink = 0.6 oz pur e alcohol) rare PHQ-2 Answer Date Recorded Patient Health Questionnaire-2 Score 0 06/15/2022 Sex and Gender Information Value Date Recorded Sex Assigned at Not on file Legal Sex Male 5:51 PM CDT Gender Identity Male 09/21/2021 7:52 AM CDT Sexual Orientation Straight 09/21/2021 7: 52 AM CDT Last Filed Vital Signs Vital Sign Reading Time Taken Comments Blood Pressure 123/81 09/19/2022 11:30 AM CDT Pulse 67 09/19/2022 9:41 AM CDT Temperature 35.7 C (96.2 F) 09/19/2022 9:41 AM CDT Respiratory Rate 16 09/19/2022 9:41 AM CDT Oxygen Saturation 99% 09/19/2022 11:30 AM CDT Inhaled Oxygen Concentration - - Weight 90.7 kg (200 lb) 09/12/2022 2:56 PM CDT Height 185.4 cm (6' 1 ) 09/12/2022 2:56 PM CDT Body Mass Index 26.39 09/12/2022 2:56 PM CDT Plan of Treatment Health Maintenance Due Date Last Done Comments Hepatitis C 1968 Pneumococcal Vaccine: 50+ Years (1 of 1 - PCV) 2000 Annual Medicare Wellness Visit 11/19/2015 DTaP, Tdap and Td Vaccines ( 2 - Td or Tdap) 12/13/2020 12/13/2010 COVID-19 Vaccine (3 - 2023-2 5 season) 2024 08/30/2020, 07/21/2020 RSV Immunization or 60+ Years (1 - 1-dose 75+ series) 2025 Colorectal Cancer Screening Colonoscopy (10 Years) 09/19/2032 09/19/2022 Zoster Vaccines Completed 12/24/2017, 08/13/2017, 03/20/2012 Meningococcal B Vaccine Aged Out No l onger eligible based on patient's age to complete this topic Meningococcal Vaccine Aged Out No shani marleny eligible based on patient's age to complete this topic RSV Immunizations Under 20 Months Aged Out No longer eligible b ased on patient's age to complete this topic Procedures Procedure Name Priority Date/Time Associated Diagnosis Comments VITAMIN D, 25 OH Routine 10/22/2024 9:46 AM CDT THYROID STIM HORMONE TSH Routine 10/22/2024 9:46 AM CDT PROSTATE SPECIFIC ANTIGEN,SCREENING Routine 10/22/2024 9:46 AM CDT LIPID PANEL Routine 10/22/2024 9:46 AM CDT HEMOGLOBIN, GLYCOSYLATED Routine 10/22/2024 9:46 AM CDT from Last 3 Months Results * (ABNORMAL) HEMOGLOBIN, GLYCOSYLATED (10/22/2024 9:46 AM CDT) HGB A1C 6.1(H) <5.7 % 10/22/2024 10:18 AM CDT [facility] Comment: INCREASED RISK OF DIABETES <5.7% NON-DIABETES 5.7-6.4% INCREASED RISK FOR FUTURE DIABETES > OR = 6.5 CONSISTENT WITH DIABETES STANDARDS OF MEDICAL CARE IN DIABETES-2010 DIABETES CARE, 33(SUPP 1): S1-S61,2010 ESTIMATED AVG GLUCOSE 128 mg/dL 10/22/2024 10:18 AM CDT [facility] 10/22/2024 9:46 AM CDT us Roberto Jaramillo MD LABORATORY Final Result [facility] [address] [place] [address], * (ABNORMAL) PROSTATE SPECIFIC ANTIGEN,SCREENING (10/22/2024 9:46 AM CDT) PSA 5.02(H) <4.00 NG/ML 10/22/2024 10:38 AM T [facility] Comment: Test was performed using the Siemens method. Results obtained with other assay methods or kits cannot be used interchangeably with results obtained by the Siemens method. 10/22/2024 9:46 AM CDT Roberto Jaramillo MD LABORATORY Final Result [facility] [address] [place] [address], [place] [phone] * LIPID PANEL (10/22/2024 9:46 AM CDT) CHOLESTEROL 157 <200.0 MG/DL 10/22/2024 10:38 AM T [facility] TRIGLYCERIDES 79 <150 MG/DL 10/22/2024 10:38 AM [facility] HDL 74 >40.0 MG/DL 10/22/2024 10:38 AM [facility] LDL (CALCULATED) 67 <100 MG/DL 10/23/19 25 10:38 AM [facility] NON HDL CHOLESTEROL 83 <130 MG/DL 10/22 10:38 AM [facility] CHOL/HDL RATIO 2.1 0.0 - 4.5 10/22/2024 10:38 AM [facility] VLDL CALCULATION 16 5 - 55 MG/DL 10/22/2024 10:38 AM [facility] LIPID INTERPRETATION 10/22/2024 10:38 AM [facility] Comment: NIH CONCENSUS REPORT RECOMMENDATIONS: ADULT CHILD LOW RISK: CHOLESTEROL <200 <170 TRIGLYCERIDE <150 --- HDL >=60 --- LDL <100 <110 BORDERLINE: CHOLESTEROL 200-239 170-199 TRIGLYCERIDE 150-199 --- HDL 40-59 --- LDL 100-159 110-129 HIGH RISK: CHOLESTEROL >=240 >=200 TRIGLYCERIDE >=200 --- HDL <40 --- LDL >=160 >=130 10/22/2024 9:46 AM CDT us Roberto Jaramillo MD LABORATORY Final Result Performing Organization Address [facility]/ZIP Co de Phone Number [facility] [address] [place] [address], [place] [phone] * THYROID STIM HORMONE TSH (10/22/2024 9:46 AM CDT) TSH 1.690 0.358 - 3.74 uIU/ML 10/22/2024 10:38 AM CDT [facility] Comment: HIGH DOSES OF BIOTIN MAY INTERFERE WITH THIS TEST RESULT. CORRELATION TO CLINICAL HISTORY AND PRESENTATION RECOMMENDED. 10/22/2024 9:46 AM CDT us Roberto Jaramillo MD LABORATORY Final Result Performing Organization Address [facility] Co de Phone Number [facility] [address] [place] [address], [place] [phone] * VITAMIN D, 25 OH (10/22/2024 9:46 AM CDT) VITAMIN D 25 HYDROXY S/P/B 33 30 - 100 NG/ML 10/22/2024 10:48 AM CDT [facility] Comment: INTERPRETATION DEFICIENT <20 INSUFFICIENT 20-29 SUFFICIENT 30-100 10/22/2024 9:46 AM CDT us Roberto Jaramillo MD LABORATORY Final Result Performing Organization Address [facility] Co de Phone Number [facility] [address] [place] [address], [place] [phone] from Last 3 Months Insurance [employer] Care Teams Complaints Coordinator Relationship Specialty Start Date End Date Justina Davis PA [facility] [place] [address] PCP - General PHYSICIAN TOWER SUPERVISOR 07/26/22
--- OUTSIDE RECORDS SUMMARY | 2024-10-26 11:32 | XMS_ITS | Clinical Summary ---
Author Organization [facility] [address] Address [address] [place] [address] Care Team Providers Care Worship Director Name Role Phone Justina Davis Primary Care Provider [phone] Allergies No known active allergies Medications aspirin (Madelin Low Dose Aspirin) 81 mg enteric coated tablet Take 1 tablet (81 mg total) by mouth daily 10/16/2022 Active finasteride (PROSCAR) 5 mg tablet Take 1 tablet (5 mg total) by mouth daily Active rosuvastatin (CRESTOR) 10 mg tablet TAKE 1 TABLET BY MOUTH EVERY DAY 90 tablet 3 09/03/2024 Active metoprolol XL (TOPROL-XL) 50 mg extended release tablet TAKE 1 TABLET BY MOUTH EVERY DAY 90 tablet 3 09/10/2024 Active Active Problems Problem Noted Date Diagnosed Date Coronary atherosclerosis of yuhaaviatam coronary zeeshan ry 10/16/2022 Aneurysm of the ascending aorta, without rupture 10/16/2022 Benign neoplasm of large intestine 10/24/2013 Overview (09/14/2016): BENIGN NEOPLASM LG BOWEL Hypertension 10/24/2013 Overview (09/14/2016): Hypertension Encounters Date Type Department Care Team Description 08/11/2024 9:45 AM BROKE WORKER Office Visit [facility] Cardiology at [address] [place] [address] Ariel Carcamo MD Aneurysm of the ascending aorta, without rupture (Primary Dx) from Last 3 Months Immunizations Immunization Administration Dates Next Due Hep B Vaccine 06/10/1995 Tdap 12/13/2010 ZOSTER LIVE 03/20/2012 Surgical History Surgery Date Site/Laterality Comments KIDNEY STONE SURGERY 08/02/2023 PROSTATE SURGERY 2020 KNEE ARTHROSCOPY W/ LATERAL RELEASE 2014 Medical History Medical History Date Comments Hx Other Medical 01-UROLOGIST Cholelithiasis cholelithiasis Hx Other Medical colon polyp-fam akanksha history Hx Other Medical Cyst removed fr om wrist GERD (gastroesophageal reflux disease) 2001 Hypertension 2011 Benign prostatic hyperplasia 2019 Kidney stone 2020 Family History Medical History Relation Name Comments Other Brother 1 mandy Alive and well; Other Brother 2 Blu Alive and well; Cancer Father Kev Keo Other Father Kev Armandorich eye tumor; l iving Prostate cancer Father Kev Armandorich prostate cancer; living Skin cancer Father Kev Crowley Cancer -skin ; living Stroke Father Kev Crowley Stroke; philippe ng Diabetes Mother Sayda Crowley Diabetes olya itus; living Other Mother Sayda Keo Parkinsons; l iving Breast cancer Sister 1 Cinda Segura Cancer, breast ; Cancer Sister 1 Cinda Segura Other Sister 2 Bhavana Alive and well; Other Sister 3 cristine Alive and well; Relation Name Status Comments Brother 1 mandy Alive Brother 2 Blu Alive Father Kev Crowley Alive Mother Sayda Crowley Alive Sister 1 Cinda Segura Alive Sister 2 Bhavana Alive Sister 3 cristine Alive Sister 4 Cinda Alive Social History Tobacco Use Types Packs/Day Years Used Date Smoking Tobacco: Never Smokeless Tobacco: Never Tobacco Cessation:Counseling Given: Not Answered Alcohol Use Standard Drinks/Week Comments Yes 0 (1 standard drink = 0.6 oz pur e alcohol) Sex and Gender Information Value Date Recorded Sex Assigned at Not on file Legal Sex Male 11:41 PM BROKE WORKER Gender Identity Male 08/14/2022 10:07 AM BROKE WORKER Sexual Orientation Straight 08/14/2022 10 :07 AM BROKE WORKER Obstetrics History Last Filed Vital Signs Vital Sign Reading Time Taken Comments Blood Pressure 126/86 08/11/2024 9:41 AM BROKE WORKER Pulse 74 08/11/2024 9:41 AM BROKE WORKER Temperature - - Respiratory Rate - - Oxygen Saturation 96% 08/11/2024 9:41 AM BROKE WORKER Inhaled Oxygen Concentration - - Weight 93 kg (205 lb) 08/11/2024 9:41 AM BROKE WORKER Height 185.4 cm (6' 1 ) 08/11/2024 9:41 AM BROKE WORKER Body Mass Index 27.05 08/11/2024 9:41 AM BROKE WORKER Plan of Treatment Health Maintenance Due Date Last Done Comments Colon Cancer Screening-Colonoscopy 1950 Depression Screening 1950 Fall Risk Assessment 1950 Hepatitis C Screening 1950 Prostate Cancer Screening-PSA 1950 Pneumococcal vaccine 65+ (1 of 1 - PCV) 2000 Well Visit 65+ 11/19/2015 DTaP/Tdap/Td Vaccine (2 - Td or Tdap) 12/13/2020 12/13/2010 Covid-19 Vaccine (2023-2 5 season) 2024 04/20/2022, 10/17/2021, 05/23/2021, Additional history exists Hepatitis B Screening Completed 06/10/1995 Zoster Vaccine Completed 12/24/2017, 11/2017, 03/20/2012 Influenza Vaccine Completed 03/25/2024, , 03/17/2021, Additional history exists Insurance [facility] Care Teams Worship Director Relationship Specialty Start Date End Date Justina Davis PA [address] [place] [id number] PCP - General Physician Habilitation Training Specialist 08/08/22
--- OUTSIDE RECORDS SUMMARY | 2024-10-26 11:32 | XMS_ITS | Clinical Summary ---
Author Organization [facility] Address [address] [place] [address] Care Team Providers Care Gyro Compass Tester Name Role Phone Jacques Soni MD Primary Care Provider [phone] Source Comments [facility],non-owned Affiliates and Associated Physician Practices is amultiple site organization consisting of ambulatory clinics and hospital sitesin [place], [place] and [place]. This disclosure is being madepursuant to the Care Everywhere program and may not contain all information available regarding this patient. Last updated 18.[facility] Social History Tobacco Use Types Packs/Day Years Used Date Smoking Tobacco: Never Assessed Sex and Gender Information Value Date Recorded Sex Assigned at Not on file Legal Sex Male 4:03 PM CDT Gender Identity Not on file Sexual Orientation Not on file Plan of Treatment Health Maintenance Due Date Last Done Comments COLOGUARD (AGES 45-75) - COL ON CA SCREENING 1950 COLON MONITORING 1950 COLONOSCOPY - COLON CA SCREENING 1950 CT COLONOGRAPHY - COLON CA SCREENING 1950 Colorectal Cancer Screening 1950 FIT - COLON CA SCREENING 1950 FLEX SIG - COLON CA SCREENING 1950 LIPID TESTING 1950 HEPATITIS C SCREENING 11/13/1968 DTAP/TDAP/TD VACCINES (1 - Tdap) 1969 PNEUMOCOCCAL VACCINE 50+ (1 of 1 - PCV) 2000 ZOSTER VACCINE (1 of 2) 2000 COVID-19 VACCINE ( - 2023-2 5 season) 2024 DEPRESSION SCREENING 06/10/2024 INFLUENZA VACCINE (Season Ended) 2025 Respiratory Syncytial Virus (RSV) Vaccine Pt: or over 60 yrs (1 - 1-dose 75+ series) 2025 HEPATITIS B VACCINE Aged Out No longe r eligible based on patient's age to complete this topic HIB VACCINE Aged Out No longer eligi ble based on patient's age to complete this topic HPV VACCINE Aged Out No longer eligi ble based on patient's age to complete this topic MENINGOCOCCAL (Group B) VACC INE SHARED DECISION-MAKING Aged Out No longer eligibl e based on patient's age to complete this topic MENINGOCOCCAL GROUPS A/C/Y/W VACCINE Aged Out No longer eligible b ased on patient's age to complete this topic Insurance [employer] Care Teams Gyro Compass Tester Relationship Specialty Start Date End Date Jacques Soni MD [address] [place] [address] [address] [place], [place] [id number] PCP - General 04/05/21
--- OUTSIDE RECORDS SUMMARY | 2024-10-26 11:32 | XMS_ITS | Referral Summary ---
Author Organization [facility] [address] Address [address] [place] [address] Care Team Providers Care International Guest Coordinator Name Role Phone Justina Davis Primary Care Provider [phone] Encounters Date Type Department Care Team Description 08/11/2024 9:45 AM ACCOUNTANT COST Office Visit [facility] Cardiology at [address] [place] [address] Ariel Carcamo MD Aneurysm of the ascending aorta, without rupture (Primary Dx) from Last 3 Months Allergies No known active allergies Medications aspirin [...] Noted Date Diagnosed Date Coronary atherosclerosis of galena coronary zeeshan ry 10/16/2022 Aneurysm of the ascending aorta, without rupture 10/16/2022 Benign neoplasm of large intestine 10/24/2013 Overview (09/14/2016): BENIGN NEOPLASM LG BOWEL Hypertension 10/24/2013 Overview (09/14/2016): Hypertension Immunizations Immunization Administration Dates Next Due Hep B Vaccine 06/10/1995 Tdap 12/13/2010 ZOSTER LIVE 03/20/2012 Social History Tobacco Use Types Packs/Day Years Used Date Smoking Tobacco: Never Smokeless Tobacco: Never Tobacco Cessation:Counseling Given: Not Answered Alcohol Use Standard Drinks/Week Comments Yes 0 (1 standard drink = 0.6 oz pur e alcohol) Sex and Gender Information Value Date Recorded Sex Assigned at Not on file Legal Sex Male 11:41 PM ACCOUNTANT COST Gender Identity Male 08/14/2022 10:07 AM ACCOUNTANT COST Sexual Orientation Straight 08/14/2022 10 :07 AM ACCOUNTANT COST Last Filed Vital Signs Vital Sign Reading Time Taken Comments Blood Pressure 126/86 08/11/2024 9:41 AM ACCOUNTANT COST Pulse 74 08/11/2024 9:41 AM ACCOUNTANT COST Temperature - - Respiratory Rate - - Oxygen Saturation 96% 08/11/2024 9:41 AM ACCOUNTANT COST Inhaled Oxygen Concentration - - Weight 93 kg (205 lb) 08/11/2024 9:41 AM ACCOUNTANT COST Height 185.4 cm (6' 1 ) 08/11/2024 9:41 AM ACCOUNTANT COST Body Mass Index 27.05 08/11/2024 9:41 AM ACCOUNTANT COST Plan of Treatment Not on file Insurance [facility] Care Teams International Guest Coordinator Relationship Specialty Start Date End Date Justina Davis PA [address] [place] [id number] PCP - General Physician Security Delivery Specialist 08/08/22
== END 2024-10-26 10:57 | disposition home or self-care (01) ==
PROVIDERS: PCP Physician Assistant Medical; Visit Provider Urology
DX: N20.0 Calculus of kidney (principal)
CPT/HCPCS: 74018